=== PATIENT | male | born 1980 | race Caucasian/White ===

== ENCOUNTER 2022-06-24 16:02 | Inpatient (IN) | payer OTHER, SELFPAY ==
[2022-06-24] VITALS (7 sets, daily range): BP systolic 108–130; BP diastolic 61–72; PULSE 80–98; RESP 16; TEMP 36.4–38.1; O2SAT 94–99; BMI 27.9
--- NOTE | ~2022-06-24 | US_ITS ---
EXAMINATION: ULTRASOUND EXTREMITY NONVASCULAR, LEFT CLINICAL INFORMATION: Distal medial calf redness. COMPARISON: None TECHNIQUE: Targeted sonographic evaluation of the left distal medial calf FINDINGS: In the region of concern there is mild superficial edema with hyperemia. There is no fluid collection. No mass. US/US extremity nonvascular hagan IMPRESSION: Mild superficial edema in the region of concern. No fluid collection.
--- NOTE | ~2022-06-24 | CT_ITS ---
EXAMINATION: CT cervical spine wo IV con, CT head/brain wo IV con INDICATION INFORMATION: Status post fall downstairs, IVDA COMPARISON: None TECHNIQUE: Separate noncontrast CT examinations of the head and cervical spine were performed. Coronal and sagittal images were created for each examination at the technologist workstation. This CT examination was performed using dose optimization techniques as appropriate, variously including the following: *Automated exposure control *Adjustment of mA and/or kV according to patient size (this includes techniques or standardized protocols for targeted exams where dose is matched to indication/reason for exam; i.e. extremities or head) *Use of iterative reconstruction technique DLP: 995.61 mGy-cm mGy-cm FINDINGS: Head: The ventricles and sulci are normal in size and configuration without significant volume loss or hydrocephalus. There is no abnormal attenuation within the brain parenchyma. No territorial loss of syed-white differentiation. No acute intracranial hemorrhage or extra-axial fluid collection. No mass lesion, significant mass effect, or herniation pattern. The orbits are grossly normal. Paranasal sinuses and mastoid air cells are well aerated. Osseous structures are intact. Bilateral palatine tonsilloliths. Cervical spine: Motion degraded examination. No prevertebral soft tissue swelling. The craniocervical junction is intact. Sagittal alignment is preserved. There is no significant spondylolisthesis. Vertebral body heights are normal without acute compression fracture or traumatic posterior element subluxation. No suspicious osseous lesion. The intervertebral disc space heights are preserved. No significant spinal canal or neural foraminal stenosis at any level. Normal appearance of the paraspinal soft tissues. Normal appearance of the thyroid gland. Partially imaged median sternotomy. Lung findings discussed separately. Carious right posterior maxillary molar tooth. Bilateral palatine tonsilloliths. Subcutaneous emphysema within the bilateral neck soft tissues surrounding the bilateral sternocleidomastoid muscles with asymmetric enlargement of the left sternocleidomastoid muscle with surrounding soft tissue stranding and edema, including involvement of the deep myofascial plane at least on the left. Soft tissue stranding extends inferiorly abutting the carotid sheath structures, involving the left greater than right cervical triangles, and supraclavicular fossa. Increased size and number of views cervical chain lymph nodes, most pronounced in the bilateral level 2A donte stations, measuring 1.8 cm on the left and 1.7 cm on the right, probably reactive. No overlying soft tissue laceration is visualized. CT/CT cervical spine wo IV con IMPRESSION: 1. No acute intracranial hemorrhage or extra-axial fluid collection. 2. No acute fracture or traumatic subluxation of the cervical spine. 3. Subcutaneous emphysema and soft tissue stranding within the bilateral neck soft tissues surrounding the sternocleidomastoid muscles may reflect a sequelae of recent injection given reported history of IV drug abuse, however cellulitis/myositis and necrotizing fasciitis should be excluded on clinical grounds. Increased size and number of mildly prominent bilateral cervical chain lymph nodes, likely reactive. No drainable fluid collection on this noncontrast examination.
--- NOTE | ~2022-06-24 | XR_ITS ---
EXAMINATION: XR KNEE, LEFT CLINICAL INFORMATION: Pain after fall COMPARISON: None TECHNIQUE: Four views of the left knee. FINDINGS: Bones and soft tissues are normal. No fracture or joint effusion. Alignment is anatomic. Joint spaces are well maintained. No abnormal soft tissue calcification. XR/XR knee LT 3V IMPRESSION: Normal left knee.
--- NOTE | ~2022-06-24 | CT_ITS ---
EXAMINATION: CT CHEST, ABDOMEN AND PELVIS WITH CONTRAST CLINICAL INFORMATION: Fall. On Coumadin. COMPARISON: None. TECHNIQUE: Multidetector volumetric CT imaging of the chest, abdomen and pelvis was obtained after the administration of 85 mL of intravenous Omnipaque 350 without immediate adverse reactions. Coronal and sagittal reformatted images are performed at CT scanner [This CT examination was performed using dose optimization techniques as appropriate, variously including the following: *Automated exposure control *Adjustment of mA and/or kV according to patient size (this includes techniques or standardized protocols for targeted exams where dose is matched to indication/reason for exam; i.e. extremities or head) *Use of iterative reconstruction technique] DLP: 1049 mGy-cm. FINDINGS: CT CHEST: Lungs: Normal aeration of lungs. No interstitial lung disease. Central bronchial airways are open. No suspicious lung nodule. Mediastinum: Status post median sternotomy for aortic valve repair. No mediastinal mass or significant lymphadenopathy. Thoracic aorta is unremarkable. Normal thyroid gland. Pleura: There is no pleural effusion. No pleural mass or thickening. Axilla: No lymphadenopathy. CT ABDOMEN AND PELVIS: Liver, Gallbladder and Biliary Tree: Mild low-attenuation of liver parenchyma due to fatty change. No focal liver lesion or intrahepatic bile duct dilatation. The right lobe of liver measures 17 cm superior inferior. The gallbladder is unremarkable with no evidence of radiopaque gallstones, gallbladder wall thickening, or obvious pericholecystic inflammatory changes. Pancreas: No acute change of the pancreas. No mass. No pancreatic duct dilatation. Spleen: Spleen mildly prominent size measuring 12.6 cm in length. There is no focal splenic lesion. Adrenal Glands: Adrenal glands are normal in size. No focal mass. Kidneys and Ureters: The kidneys are normal in size, shape, and attenuation. No hydronephrosis, hydroureter, or calculi seen. No perinephric stranding. Bladder: Unremarkable. Gastrointestinal Tract: The small and large bowel are unremarkable. The appendix is unremarkable. Mesentery: No focal inflammation. No free fluid. No free air. Abdominal Wall: No significant hernia is appreciated. Lymph Nodes: Normal. Vascular: Unremarkable. Pelvic Viscera: Unremarkable. Osseous Structures: Status post median sternotomy. No acute osseous abnormality. CT/CT abdomen pelvis w IV con IMPRESSION: 1. No acute abnormality of the chest, abdomen or pelvis. 2. Status post median sternotomy for aortic valve repair. 3. Mild diffuse fatty change of liver. 4. Mild splenomegaly.
--- NOTE | ~2022-06-24 | CT_ITS ---
EXAMINATION: CT SOFT TISSUE NECK WITH CONTRAST CLINICAL INFORMATION: Follow-up neck soft tissue gas COMPARISON: CT cervical spine of 06/24/2022 TECHNIQUE: Following the administration of 100 mL of Omnipaque 300 intravenous contrast, helical imaging was performed in the axial plane with generation of coronal and sagittal reformatted images. This CT examination was performed using dose optimization techniques as appropriate, variously including the following: *Automated exposure control. *Adjustment of mA and/or kV according to patient size (this includes techniques or standardized protocols for targeted exams where dose is matched to indication/reason for exam; i.e. extremities or head). *Use of iterative reconstruction technique. DLP: 492 mGy-cm. FINDINGS: Since prior examination from 06/24/2022, subcutaneous emphysema and soft tissue stranding/edema within the bilateral neck soft tissues along the course of the sternocleidomastoid muscles has nearly resolved with trace residual soft tissue stranding and few scattered foci of air. Asymmetric enlargement of the left sternocleidomastoid muscle has resolved. No overlying skin laceration. No drainable fluid collection. Redemonstrated symmetric prominent bilateral IIa lymph nodes and asymmetric though nonpathologic size criteria left level II-IV lymph nodes, some of which are hyperenhancing, probably reactive. Mildly prominent hyperenhancing left periparotid lymph node again measures 1.0 cm in long axis. 0.5 cm subcutaneous lesion in the left facial soft tissues abutting the dermis, likely a sebaceous or epidermoid cyst. The fat planes of the skull base and soft tissues of the nasopharynx are unremarkable. The paranasal sinuses and mastoid air cells are well aerated. The temporomandibular joints are normal. Symmetric enlargement of the palatine tonsils with bilateral palatine tonsilloliths. Scattered dental caries. The hypopharynx and larynx are unremarkable. No aerodigestive tract mass. The thyroid gland is normal. Apparent mild centrilobular emphysema. Enhancement of the vascular structures of the neck. The osseous structures are intact without suspicious focal lesion. The imaged portions of the brain parenchyma are unremarkable. Median sternotomy wires. CT/CT soft tissue neck w IV con IMPRESSION: Near-complete resolution of subcutaneous emphysema and soft tissue stranding/edema within the bilateral neck soft tissues along the course of the sternocleidomastoid muscles with trace residual scattered foci of air and infiltration. Findings may have been injection-related or reflective of cellulitic/myositic changes on prior examination; correlate clinically. No drainable fluid collection. Prominent left greater than right cervical chain lymph nodes, probably reactive.
--- NOTE | 2022-06-24 16:50 | PC.NURSE ---
security at bedside for a recovery rn, belongings secured in decon room
--- NOTE | 2022-06-24 17:22 | ED_ITS ---
HPI - General Adult General Chief complaint: Overdose Stated complaint: OD Time Seen by Provider: 06/24/22 16:15 Source: patient and EMS Mode of arrival: EMS Limitations: no limitations History of Present Illness HPI narrative: Patient comes to the emergency room by EMS. According to EMS, patient was found unresponsive by a bystander, given 8 mg of intranasal Narcan by police, ventilated for 30 seconds. Patient states that he has been snorting cocaine. Patient denies IV drug use. Patient has history of endocarditis with valve replacement and is on Coumadin. Patient states that since 2017 since his surg olga, he has not use IV drugs. Patient states that he relapsed a few days ago. Patient states that he does not remember what happened, he thinks he fell down a flight of stairs. Patient complaining of right-sided rib pain, left hip pain and cellulitis in his left distal lower extremity Related Data Home Medications Medication Instructions Recorded Confirmed alprazolam 1 mg tablet 1 mg PO BID PRN 04/28/21 aripiprazole 10 mg tablet 10 mg PO DAILY 04/28/21 aripiprazole 15 mg tablet 15 mg PO DAILY 04/28/21 aripiprazole 5 mg tablet 5 mg PO DAILY 04/28/21 dextroamphetamine-amphetamine 20 1 tab PO BID 04/28/21 mg tablet doxepin 100 mg capsule 100 mg PO BEDTIME 04/28/21 lamotrigine 200 mg tablet 200 mg PO BID 04/28/21 metoprolol succinate 50 mg 50 mg PO DAILY 04/28/21 tablet,extended release 24 hr olanzapine 10 mg tablet 10 mg PO BEDTIME 04/28/21 pantoprazole 40 mg tablet,delayed 40 mg PO BID 04/28/21 release warfarin 10 mg tablet 0 mg PO 04/28/21 zolmitriptan 5 mg tablet 0 mg PO 04/28/21 Allergies Allergy/AdvReac Type Severity Reaction Status Date / Time morphine [MORPHINE] Allergy Unknown ITCHY Verified 04/28/21 14:08 shellfish derived Allergy Unknown SHORTNESS Verified 04/28/21 14:08 [SHELLFISH DERIVED] OF BREATH Sulfa (Sulfonamide Allergy Unknown UNK Verified 04/28/21 14:08 Antibiotics) [SULFA (SULFONAMIDE ANTIBIOTICS)] Review of Systems Review of Systems: Constitutional : No Weight loss, No Fever, No Chills, No Night Sweats, No Fatigue, No Malaise ENT/Mouth : No Hearing loss, No Ear Pain, No Nasal Congestion, No Sinus Pain, No Hoarseness, No sore throat, No Rhinorrhea, No Swallowing Difficulty Eyes: No Eye Pain, No Swelling, No Redness, No Foreign Body, No Discharge, No Vision Changes Cardiovascular : No Chest Pain, No SOB, No Dyspnea on Exertion, No Orthopnea, No Edema, No Palpitations Respiratory : No Cough, No Sputum, No Wheezing, No Smoke Exposure, No Dyspnea Gastrointestinal : No Nausea, No Vomiting, No Diarrhea, No Constipation, No abdominal Pain, No Hematochezia, No Melena Genitourinary : no irregular bleeding, No Dysuria, No Urinary Frequency, No Hematuria, No Urinary Incontinence, No Urgency, No Flank Pain, No Urinary Flow Changes, No Hesitancy Musculoskeletal : Complaining of left hip pain, complaining of right rib pain Skin : Complaining of cellulitis in his left lower extremity Neuro : No Weakness, No Numbness, No Paresthesias, No Loss of Consciousness, No Dizziness, No Headache Psych : No Anxiety/Panic, No Depression, No SI/HI/AH/VH, admits to recent relapse, using crack cocaine Heme/Lymph: No Bruising, No Bleeding,No Lymphadenopathy Endocrine : No Polyuria, No Polydipsia, No Temperature Intolerance PMFSH Past Medical History Medical History (Updated 06/25/22 @ 01:17 by Lindsey Lidnsey MD) Anticoagulated on Coumadin Substance abuse Surgical History (Updated 06/24/22 @ 17:28 by Lindsey Lindsey MD) Heart valve replaced Social History Social History Patient Tobacco Use Status: Current everyday Tobacco user Smoked in Last 30 Days: Yes Use of substances other than those prescribed or required for medical reasons: Yes Substance Use Type: Heroin Advance Directives: No Advance Directives Information Provided: No Physical Exam ED Vital Signs: Vital Signs - 24 hr 06/24/22 16:22 06/24/22 16:30 06/24/22 18:45 Temperature 98.7 F 100.6 F H Pulse Rate 98 Respiratory Rate 16 16 Blood Pressure 118/72 Pulse Oximetry 98 Oxygen Delivery Method Room Air 06/24/22 21:35 06/24/22 22:11 06/24/22 23:25 Temperature 97.6 F 100.2 F 98.9 F Pulse Rate 85 Respiratory Rate 16 Blood Pressure 108/61 Pulse Oximetry 94 Oxygen Delivery Method 06/25/22 00:04 Temperature 100.8 F H Pulse Rate 87 Respiratory Rate 20 Blood Pressure 140/75 H Pulse Oximetry 96 Oxygen Delivery Method Room Air BMI result Body Mass Index 27.9 Const Other: Appearance: Alert. Oriented X3. No acute distress. Eyes: Pupils equal, round and reactive to light. ENT: Pharynx normal. Neck: Normal inspection. Neck supple. No lymph nodes noted. No crepitus CVS: Normal heart rate and rhythm. Pulses normal. Normal S1 and S2 Respiratory: No respiratory distress. Breath sounds normal. No Wheezing. No rales Abdomen: Soft and nontender. No rigidity. No distention. Musculoskeletal: Pain to palpation on the ribs on the right side, pain to palpation over the left hip, able to flex and extend the hip. There is no swelling to the left knee, no effusions noted. No erythema Skin: There is a patch 5 cm x 5 cm of erythema in the left lower extremity, no calf tenderness bilaterally. Patient has multiple abrasions and excoriations in upper arms. Seems that he has been picking his skin, no needle track bryan Extremities: No lower extremity edema. No Lacerations. See skin above Neuro: Oriented X 3. No motor deficit. No sensory deficit. Moving all extremities. No slurred speech. CN 2 through 12 grossly intact Psych: calm, cooperative, normal affect Course Course Course Narrative: -all of patient's labs and imaging pending. - Medications Administered Discontinued Medications Generic Name Dose Route Start Last Admin Trade Name Freq PRN Reason Stop Dose Admin Acetaminophen 975 mg 06/24/22 17:16 06/24/22 18:01 Acetaminophen 325 Mg Tablet PO 06/24/22 17:17 975 mg ONCE ONE Administration Sodium Chloride 1,000 mls @ 999 mls/hr 06/24/22 17:16 06/24/22 19:07 Ns IVCONT 06/24/22 18:16 999 mls/hr .Q1H1M ONE Administration Sodium Chloride 3,000 mls @ 999 mls/hr 06/24/22 20:38 06/24/22 21:22 Ns IVCONT 06/24/22 23:38 999 mls/hr .Q3H1M ONE Administration Piperacillin Sod/Tazobactam 50 mls @ 100 mls/hr 06/24/22 20:38 06/24/22 21:21 Sod 3.375 gm/ Sodium Chloride IV 06/24/22 21:07 100 mls/hr ONCE ONE Administration Vancomycin HCl 2,000 mg in 520 mls @ 260 mls/hr 06/24/22 20:38 06/24/22 21:55 Vancomycin/Ns IV 06/24/22 22:37 260 mls/hr ONCE ONE Administration Iohexol 100 ml 06/24/22 19:49 06/24/22 19:50 Iohexol 350 Mg/Ml 100 Ml Infus..Btl IV 06/24/22 19:50 85 ml ONCE ONE Administration Medical Decision Making Medical Decision Making MDM Narrative: -patient's white blood cell count is 20, lactic acid within normal limits. 5 cm x 5 cm patch of erythema in the left lower extremity. Elevated white blood cell count likely secondary to reactive leukocytosis. -patient's INR is 2.1, therapeutic for Coumadin -T bilirubin is elevated, rest of LFTs at baseline. Patient has no abdominal pain. -CT scan of the neck shows subcutaneous emphysema and soft tissue stranding. Externally, patient has no erythema, no pain to palpation. This can be explained by multiple attempts of IV insertion on the neck to administer IV fl uids. IV insertion was attempted prior to doing the CT scan. Patient has no crepitus on physical exam, cellulitis, myositis and necrotizing fascitis is not suspected. -when patient arrived, patient received prophylactic antibiotics, Zosyn and vancomycin. -the only source of infection at this time is the cellulitis in patient's lower extremity and the excoriations in his arms. -patient is able to flex and extend the knee, there is no erythema, no joint effusion, nothing that would indicate a septic joint -patient to be discharge with oral antibiotics. a SUDE evaluation was made. The college football coach was concerned the patient made some vague suicidal statements. We requested a full care consult -care consult pending -patient keeps spiking fevers, last temperature 100.8 degrees. There is no source of infection other than possible cellulitis. I discussed the patient with Dr. Zhao. Patient has already received IV fluids, IV antibiotics. -we will reassess the patient about an hour, repeat labs. It is possible that the white blood cell count is reactive leukocytosis including the fever. However, if the repeated labs do not improve and the patient keeps spiking fever, the patient is likely to be admitted. -sign-out given to Dr. Servin Differential Diagnosis Differential Diagnoses: The differential diagnosis associated with the presentation includes (Overdose, fall, rib fractures) Lab Data MDM Lab Attestation statement: I reviewed the patient's lab results. 06/24/22 18:42 06/24/22 18:42 Labs: Lab Results 06/24/22 06/24/22 06/24/22 Range/Units 18:42 18:42 18:42 WBC 20.0 H (4.8-10.8) X10*3/uL RBC 4.77 (4.60-5.80) X10*6/uL Hgb 14.5 (14.0-18.0) g/dl Hct 40.6 L (42.0-52.0) % MCV 85.1 (80.0-98.0) fL MCH 30.4 (27.0-33.0) pg MCHC 35.7 (31.0-36.0) g/dl RDW 13.2 (11.0-16.0) % Plt Count 198 (160-400) X10*3/uL MPV 11.8 (9.4-12.4) fL Immature Gran % (Auto) 0.5 H (0.0-0.4) % Neut % (Auto) 89.0 H (45-73) % Lymph % (Auto) 3.3 L (20-40) % [place] % (Auto) 6.7 (2-11) % Eos % (Auto) 0.1 (0-4) % Baso % (Auto) 0.4 (0-2) % Lymph # (Auto) 0.7 L (1.2-4.9) X10*3/uL [place] # (Auto) 1.3 H (0.1-1.2) X10*3/uL Eos # (Auto) 0.0 (0.0-0.4) X10*3/uL Baso # (Auto) 0.1 (0.0-0.2) X10*3/uL Abs Immat Gran (auto) 0.09 H (0.00-0.03) X10*3/uL Absolute Neuts (auto) 17.8 H (2.0-8.3) x10*3/uL Absolute Nucleated RBC 0.000 (0.0-0.012) X10*3/uL Nucleated RBC % (auto) 0.0 (0.0-0.2) /100WBC PT (10.0-13.1) SEC INR (0.9-1.1) Sodium 139 (135-145) mmol/L Potassium 3.9 (3.3-5.1) mmol/L Chloride 105 (96-108) mmol/L Carbon Dioxide 25 (22-29) mmol/L Anion Gap 13 (12-20) BUN 12 (9-16) mg/dL Creatinine 0.77 (0.5-1.4) mg/dL Estim Creat Clear Calc 141.3 Estimated GFR > 60 Random Glucose 113 (60-115) mg/dL Lactic Acid (0.5-2.0) mmol/L Calcium 9.3 (8.4-10.2) mg/dL Magnesium 1.7 (1.6-2.6) mg/dL Total Bilirubin 1.5 H (0.0-1.0) mg/dL Direct Bilirubin 0.5 (0.0-0.5) mg/dL AST 45 H (5-37) U/L ALT 65 H (0-40) U/L Alkaline Phosphatase 74 (39-117) U/L Troponin I High Sens 5.6 (<3.5-35.0) ng/L Total Protein 6.5 (6.5-8.0) g/dL Albumin 4.0 (3.5-5.0) g/dL Urine Color Urine Appearance Urine pH (5.0-9.0) Ur Specific [place] (1.005-1.025) Urine Protein (Neg-Trace) mg/dL Urine Glucose (UA) (Negative) mg/dL Urine Ketones (Negative) mg/dL Urine Blood (Negative) Urine Nitrite (Negative) Ur Leukocyte Esterase (Negative) Urine Opiates Screen (Not Detect) Urine Fentanyl Screen (Not Detect) Ur Barbiturates Screen (Not Detect) Ur Phencyclidine Scrn (Not Detect) Ur Amphetamines Screen (Not Detect) U Benzodiazepines Scrn (Not Detect) Urine Cocaine Screen (Not Detect) U Marijuana (THC) Screen (Not Detect) Ethyl Alcohol mg/dL COVID-19 (ANGE) (Negative) COVID-19 Clin Com 06/24/22 06/24/22 06/24/22 Range/Units 18:42 18:42 18:42 WBC (4.8-10.8) X10*3/uL RBC (4.60-5.80) X10*6/uL Hgb (14.0-18.0) g/dl Hct (42.0-52.0) % MCV (80.0-98.0) fL MCH (27.0-33.0) pg MCHC (31.0-36.0) g/dl RDW (11.0-16.0) % Plt Count (160-400) X10*3/uL MPV (9.4-12.4) fL Immature Gran % (Auto) (0.0-0.4) % Neut % (Auto) (45-73) % Lymph % (Auto) (20-40) % [place] % (Auto) (2-11) % Eos % (Auto) (0-4) % Baso % (Auto) (0-2) % Lymph # (Auto) (1.2-4.9) X10*3/uL [place] # (Auto) (0.1-1.2) X10*3/uL Eos # (Auto) (0.0-0.4) X10*3/uL Baso # (Auto) (0.0-0.2) X10*3/uL Abs Immat Gran (auto) (0.00-0.03) X10*3/uL Absolute Neuts (auto) (2.0-8.3) x10*3/uL Absolute Nucleated RBC (0.0-0.012) X10*3/uL Nucleated RBC % (auto) (0.0-0.2) /100WBC PT 25.0 H (10.0-13.1) SEC INR 2.1 H (0.9-1.1) Sodium (135-145) mmol/L Potassium (3.3-5.1) mmol/L Chloride (96-108) mmol/L Carbon Dioxide (22-29) mmol/L Anion Gap (12-20) BUN (9-16) mg/dL Creatinine (0.5-1.4) mg/dL Estim Creat Clear Calc Estimated GFR Random Glucose (60-115) mg/dL Lactic Acid 0.7 (0.5-2.0) mmol/L Calcium (8.4-10.2) mg/dL Magnesium (1.6-2.6) mg/dL Total Bilirubin (0.0-1.0) mg/dL Direct Bilirubin (0.0-0.5) mg/dL AST (5-37) U/L ALT (0-40) U/L Alkaline Phosphatase (39-117) U/L Troponin I High Sens (<3.5-35.0) ng/L Total Protein (6.5-8.0) g/dL Albumin (3.5-5.0) g/dL Urine Color Urine Appearance Urine pH (5.0-9.0) Ur Specific [place] (1.005-1.025) Urine Protein (Neg-Trace) mg/dL Urine Glucose (UA) (Negative) mg/dL Urine Ketones (Negative) mg/dL Urine Blood (Negative) Urine Nitrite (Negative) Ur Leukocyte Esterase (Negative) Urine Opiates Screen (Not Detect) Urine Fentanyl Screen (Not Detect) Ur Barbiturates Screen (Not Detect) Ur Phencyclidine Scrn (Not Detect) Ur Amphetamines Screen (Not Detect) U Benzodiazepines Scrn (Not Detect) Urine Cocaine Screen (Not Detect) U Marijuana (THC) Screen (Not Detect) Ethyl Alcohol mg/dL COVID-19 (ANGE) Negative (Negative) COVID-19 Clin Com See Note 06/24/22 06/24/22 06/24/22 Range/Units 18:42 18:42 18:42 WBC (4.8-10.8) X10*3/uL RBC (4.60-5.80) X10*6/uL Hgb (14.0-18.0) g/dl Hct (42.0-52.0) % MCV (80.0-98.0) fL MCH (27.0-33.0) pg MCHC (31.0-36.0) g/dl RDW (11.0-16.0) % Plt Count (160-400) X10*3/uL MPV (9.4-12.4) fL Immature Gran % (Auto) (0.0-0.4) % Neut % (Auto) (45-73) % Lymph % (Auto) (20-40) % [place] % (Auto) (2-11) % Eos % (Auto) (0-4) % Baso % (Auto) (0-2) % Lymph # (Auto) (1.2-4.9) X10*3/uL [place] # (Auto) (0.1-1.2) X10*3/uL Eos # (Auto) (0.0-0.4) X10*3/uL Baso # (Auto) (0.0-0.2) X10*3/uL Abs Immat Gran (auto) (0.00-0.03) X10*3/uL Absolute Neuts (auto) (2.0-8.3) x10*3/uL Absolute Nucleated RBC (0.0-0.012) X10*3/uL Nucleated RBC % (auto) (0.0-0.2) /100WBC PT (10.0-13.1) SEC INR (0.9-1.1) Sodium (135-145) mmol/L Potassium (3.3-5.1) mmol/L Chloride (96-108) mmol/L Carbon Dioxide (22-29) mmol/L Anion Gap (12-20) BUN (9-16) mg/dL Creatinine (0.5-1.4) mg/dL Estim Creat Clear Calc Estimated GFR Random Glucose (60-115) mg/dL Lactic Acid (0.5-2.0) mmol/L Calcium (8.4-10.2) mg/dL Magnesium (1.6-2.6) mg/dL Total Bilirubin (0.0-1.0) mg/dL Direct Bilirubin (0.0-0.5) mg/dL AST (5-37) U/L ALT (0-40) U/L Alkaline Phosphatase (39-117) U/L Troponin I High Sens (<3.5-35.0) ng/L Total Protein (6.5-8.0) g/dL Albumin (3.5-5.0) g/dL Urine Color Yellow Urine Appearance Clear Urine pH 7.5 (5.0-9.0) Ur Specific [place] <= 1.005 (1.005-1.025) Urine Protein Negative (Neg-Trace) mg/dL Urine Glucose (UA) Negative (Negative) mg/dL Urine Ketones Trace (Negative) mg/dL Urine Blood Negative (Negative) Urine Nitrite Negative (Negative) Ur Leukocyte Esterase Negative (Negative) Urine Opiates Screen POSITIVE H (Not Detect) Urine Fentanyl Screen POSITIVE H (Not Detect) Ur Barbiturates Screen Not Detected (Not Detect) Ur Phencyclidine Scrn Not Detected (Not Detect) Ur Amphetamines Screen Not Detected (Not Detect) U Benzodiazepines Scrn Not Detected (Not Detect) Urine Cocaine Screen POSITIVE H (Not Detect) U Marijuana (THC) Screen Not Detected (Not Detect) Ethyl Alcohol < 10 mg/dL COVID-19 (ANGE) (Negative) COVID-19 Clin Com Radiology Impression Discussion of test interpretation with radiology: I have reviewed the radiologist's reading. Radiologist Impression: CT scan of chest abdomen and pelvis FINDINGS: CT CHEST: Lungs: Normal aeration of lungs. No interstitial lung disease. Central bronchial airways are open. No suspicious lung nodule.? Mediastinum: Status post median sternotomy for aortic valve repair. No mediastinal mass or significant lymphadenopathy. Thoracic aorta is unremarkable. Normal thyroid gland.? Pleura: There is no pleural effusion. No pleural mass or thickening.? Axilla: No lymphadenopathy.? CT ABDOMEN AND PELVIS: Liver, Gallbladder and Biliary Tree: Mild low-attenuation of liver parenchyma due to fatty change. No focal liver lesion or intrahepatic bile duct dilatation. The right lobe of liver measures 17 cm superior inferior. ?The gallbladder is unremarkable with no evidence of radiopaque gallstones, gallbladder wall thickening, or obvious pericholecystic inflammatory changes.? Pancreas: No acute change of the pancreas. No mass. No pancreatic duct dilatation.? Spleen: Spleen mildly prominent size measuring 12.6 cm in length. There is no focal splenic lesion.? Adrenal Glands: Adrenal glands are normal in size. No focal mass.? Kidneys and Ureters: The kidneys are normal in size, shape, and attenuation. No hydronephrosis, hydroureter, or calculi seen. No perinephric stranding. ? Bladder: Unremarkable.? Gastrointestinal Tract: The small and large bowel are unremarkable. The appendix is unremarkable.? Mesentery: No focal inflammation. No free fluid. No free air. Abdominal Wall: No significant hernia is appreciated.? Lymph Nodes: Normal. Vascular: Unremarkable. Pelvic Viscera: Unremarkable.? Osseous Structures: Status post median sternotomy. No acute osseous abnormality.? CT/CT chest w IV con IMPRESSION: 1.? No acute abnormality of the chest, abdomen or pelvis. 2.? Status post median sternotomy for aortic valve repair. 3.? Mild diffuse fatty change of liver. 4.? Mild splenomegaly. CT scan of head and neck: IMPRESSION: 1.? No acute intracranial hemorrhage or extra-axial fluid collection. 2.? No acute fracture or traumatic subluxation of the cervical spine. 3.? Subcutaneous emphysema and soft tissue stranding within the bilateral neck soft tissues surrounding the sternocleidomastoid muscles may reflect a sequelae of recent injection given reported history of IV drug abuse, however cellulitis/myositis and necrotizing fasciitis should be excluded on clinical grounds. Increased size and number of mildly prominent bilateral cervical chain lymph nodes, likely reactive. No drainable fluid collection on this noncontrast examination. Left knee x-ray: Bones and soft tissues are normal. No fracture or joint effusion. Alignment is anatomic. Joint spaces are well maintained. No abnormal soft tissue calcification.? XR/XR knee LT 3V IMPRESSION: Normal left knee. Discharge Plan Discharge Clinical Impression: Drug overdose, Fall, Cellulitis, Depression, Fever of unknown origin Patient Disposition: Still a Patient Prescriptions: No Action dextroamphetamine-amphetamine 20 mg tablet 1 tab PO BID alprazolam 1 mg tablet 1 mg PO BID PRN metoprolol succinate 50 mg tablet extended release 24 hr 50 mg PO DAILY aripiprazole 15 mg tablet 15 mg PO DAILY doxepin 100 mg capsule 100 mg PO BEDTIME aripiprazole 5 mg tablet 5 mg PO DAILY olanzapine 10 mg tablet 10 mg PO BEDTIME zolmitriptan 5 mg tablet 0 mg PO lamotrigine 200 mg tablet 200 mg PO BID warfarin 10 mg tablet 0 mg PO aripiprazole 10 mg tablet 10 mg PO DAILY pantoprazole 40 mg tablet,delayed release (DR/EC) 40 mg PO BID Interventions: [place]-Suicide Risk Severity Scale Last Done: 06/24/22 16:31
[2022-06-24] MEDS: Acetaminophen 325 MG TABLET 975 MG PO (18:01)
--- NOTE | 2022-06-24 18:45 | PC.NURSE ---
attempted to get and iv very unsuccessful, [place] also attempted with the us but still unsuccessful
[2022-06-24 18:47] LABS: MANUAL DIFF FLAG NO
[2022-06-24 18:48] LABS: Basophils Absolute Auto 0.1 X10*3/uL (0.0-0.2); Basophils Percent Auto 0.4 % (0-2); Eosinophils Percent Auto 0.1 % (0-4); Hematocrit 40.6 % (42.0-52.0); Hemoglobin 14.5 g/dl (14.0-18.0); Imm Gran Abs Auto 0.09 X10*3/uL (0.00-0.03); Imm Gran Pct Auto 0.5 % (0.0-0.4); Lymphocytes Absolute Auto 0.7 X10*3/uL (1.2-4.9); Lymphocytes Percent Auto 3.3 % (20-40); Mean Corpuscular HGB Conc 35.7 g/dl (31.0-36.0); Mean Corpuscular Hemoglobin 30.4 pg (27.0-33.0); Mean Corpuscular Volume 85.1 fL (80.0-98.0); Mean Platelet Volume 11.8 fL (9.4-12.4); Monocytes Absolute Auto 1.3 X10*3/uL (0.1-1.2); Monocytes Percent Auto 6.7 % (2-11); Neutrophils Absolute Auto 17.8 x10*3/uL (2.0-8.3); Platelet Count 198 X10*3/uL (160-400); Red Blood Count 4.77 X10*6/uL (4.60-5.80); Red Cell Distribution Width 13.2 % (11.0-16.0)
[2022-06-24 19:00] LABS: INTERNATIONAL NORM RATIO 2.1 (0.9-1.1)
[2022-06-24 19:02] LABS: Lactic Acid 0.7 mmol/L (0.5-2.0)
[2022-06-24 19:05] LABS: Amphetamine Screen Urine Not Detected (Not Detect); Barbiturates, Urine Not Detected (Not Detect); Benzodiazepines Screen Urine Not Detected (Not Detect); Cannabinoid Screen Urine Not Detected (Not Detect); Cocaine Screen Urine POSITIVE (Not Detect); Fentanyl, urine POSITIVE (Not Detect); Opiate Screen Urine POSITIVE (Not Detect); Phencyclidine Screen Urine Not Detected (Not Detect)
[2022-06-24 19:06] LABS: Alanine Aminotransferase 65 U/L (0-40); Alkaline Phosphatase 74 U/L (39-117); Anion Gap 13 (12-20); Aspartate Amino Transferase 45 U/L (5-37); Bilirubin Direct 0.5 mg/dL (0.0-0.5); Bilirubin Total 1.5 mg/dL (0.0-1.0); Blood Urea Nitrogen 12 mg/dL (9-16); Calcium 9.3 mg/dL (8.4-10.2); Carbon Dioxide 25 mmol/L (22-29); Chloride 105 mmol/L (96-108); Creatinine Clr Calc Pharmacy 141.3; Estimated Glomerular Filt Rate > 60; Ethanol < 10 mg/dL; Glucose Random 113 mg/dL (60-115); Magnesium 1.7 mg/dL (1.6-2.6); Potassium 3.9 mmol/L (3.3-5.1); Sodium 139 mmol/L (135-145); Total Protein 6.5 g/dL (6.5-8.0)
[2022-06-24] MEDS: 0.9 % Sodium Chloride 1,000 ML 999 ML IVCONT (19:07)
--- NOTE | 2022-06-24 19:09 | PC.NURSE ---
this rn assumed care of pt @ 1900. dr estrella able to place ej fluids started at this time. attempting to place additional line using US
[2022-06-24 19:13] LABS: Troponin-I High Sensitivity 5.6 ng/L (<3.5-35.0)
[2022-06-24 19:24] LABS: COVID-19 Test Negative (Negative); IDNOW Serial# 16C4AD1C
[2022-06-24] MEDS: iohexoL 350 MG/ML 100 ML INFUS..BTL IV (19:50)
--- NOTE | 2022-06-24 20:49 | MHC.RECOVSUP ---
Reason for consult: OD o Current location: 22H o Identified substance use concern: OPIOID - Overdose - Withdrawal <del>-</del> <del>Seeking</del> <del>ATS</del> <del>(detox)</del> <del>-</del> <del>Support</del> ? Intervention: <del>o</del> <del>ATS</del> <del>bed</del> <del>search</del> <del>started/completed/in</del> <del>process</del> <del>o</del> <del>MAT</del> <del>started</del> <del>or</del> <del>to</del> <del>be</del> <del>started</del> <del>o</del> <del>Community</del> <del>resources</del> <del>provided</del> <del>o</del> <del>Harm</del> <del>reduction</del> <del>discussion</del> ? Plan: <del>o</del> <del>Referral</del> <del>to</del> <del>[facility]</del> <del>o</del> <del>Bed</del> <del>search</del> <del>in</del> <del>progress</del> <del>to</del> <del>o</del> <del>Follow</del> <del>up</del> <del>tomorrow</del> o Patient awaiting crisis evaluation <del>o</del> <del>Patient</del> <del>to</del> <del>follow</del> <del>up</del> <del>with</del> <del>HF</del> <del>after</del> <del>discharge</del> ? Additional information:i was able to speak with pt and he stated that he OD in [place] and he is from [place]. he had two years in recovery and he stated that he recently relapsed. pt is not on MAT and he was not interested in going into treatment or any recovery resources. One of the care team guide spoke with pt and he stated that the pt made some comments that he felt were concerning and will be requesting a consult from Dr. Lindsey
--- NOTE | 2022-06-24 20:50 | PC.NURSE ---
orders placed for fluids by dr brady. this rn reached out to dr brady regarding if this would be sepsis protocol. per dr brady not sepsis protocol. no sepsis protocol called. pt medicated according to juan
--- NOTE | 2022-06-24 20:51 | HO.SUDE ---
CARE team met with PT for requested SUDE. PT reported that his life is destroyed. He reported losing everything recently which led to his recent relapse. He reported two years sober and relapsing on friday. He refused to speak about any treatment plan. He reported increase hopelessness/helplessness. He reported that his life is over and doesn't care if it ended. He was not clear if the OD was intentional. CARE team consulted with robert for a request of ordering crsisis assessment. She reported pt will be transferred/admitted.
[2022-06-24] MEDS: Piperacillin Sodium/Tazobactam 3.375 GM in 0.9 % Sodium Chloride 50 ML IV (21:21)
[2022-06-24] MEDS: 0.9 % Sodium Chloride 3,000 ML 999 ML IVCONT (21:22)
[2022-06-24 23:08] LABS: Appearance Urine Clear; Color Urine Yellow; Glucose Urine UA Negative (Negative); Leukocyte Esterase Urine Negative (Negative); Nitrite Urine Negative (Negative); PH 7.5 (5.0-9.0); Specific Gravity - Urine <= 1.005 (1.005-1.025); Urine Blood Negative (Negative); Urine Ketones Trace mg/dL (Negative); Urine Protein Negative (Neg-Trace)
[2022-06-25] VITALS (9 sets, daily range): BP systolic 97–140; BP diastolic 51–75; PULSE 60–87; RESP 17–29; TEMP 36.8–39.6; O2SAT 94–100; BMI 29.0
--- NOTE | 2022-06-25 | ECG_ITS ---
Test Reason : overdose Blood Pressure : / mmHG Vent. Rate : 085 BPM Atrial Rate : 085 BPM P-R Int : 166 ms QRS Dur : 088 ms QT Int : 340 ms P-R-T Axes : 060 044 039 degrees QTc Int : 404 ms Normal sinus rhythm Nonspecific T wave abnormality Abnormal ECG No previous ECGs available Referred By: Josh Zhao Electronically Signed By:LALO GARCIA
--- NOTE | 2022-06-25 00:35 | PC.NURSE ---
late entry-dr brady made aware of pt temperature. verbal order for motrin 600mg
--- NOTE | 2022-06-25 00:37 | PC.NURSE ---
per dr brady verbal order for 650 tylenol for fever. verbal order with read back
--- NOTE | 2022-06-25 01:35 | PC.NURSE ---
this rn attempted to medicated pt. pt appeared more lethargic at this time. dr brady made aware. dr brady observed pt at this time. instructed this rn to continue to monitor Spo2 95% RA as well as holding po medication at this time
[2022-06-25] MEDS: Acetaminophen 325 MG TABLET 650 MG PO ×3 (01:40→12:55)
[2022-06-25 01:57] LABS: Basophils Absolute Auto 0.1 X10*3/uL (0.0-0.2); Basophils Percent Auto 0.4 % (0-2); Eosinophils Percent Auto 0.1 % (0-4); Hematocrit 40.8 % (42.0-52.0); Hemoglobin 14.1 g/dl (14.0-18.0); Imm Gran Abs Auto 0.06 X10*3/uL (0.00-0.03); Imm Gran Pct Auto 0.4 % (0.0-0.4); Lymphocytes Percent Auto 7.1 % (20-40); MANUAL DIFF FLAG NO; Mean Corpuscular HGB Conc 34.6 g/dl (31.0-36.0); Mean Corpuscular Hemoglobin 29.7 pg (27.0-33.0); Mean Corpuscular Volume 85.9 fL (80.0-98.0); Mean Platelet Volume 11.7 fL (9.4-12.4); Monocytes Absolute Auto 0.7 X10*3/uL (0.1-1.2); Monocytes Percent Auto 4.7 % (2-11); Neutrophils Absolute Auto 12.2 x10*3/uL (2.0-8.3); Neutrophils Percent Auto 87.3 % (45-73); Platelet Count 168 X10*3/uL (160-400); Red Blood Count 4.75 X10*6/uL (4.60-5.80); Red Cell Distribution Width 13.4 % (11.0-16.0)
[2022-06-25 02:08] LABS: Lactic Acid 1.1 mmol/L (0.5-2.0)
[2022-06-25 02:18] LABS: Anion Gap 10 (12-20); Blood Urea Nitrogen 9 mg/dL (9-16); Calcium 8.3 mg/dL (8.4-10.2); Carbon Dioxide 24 mmol/L (22-29); Chloride 109 mmol/L (96-108); Creatinine Clr Calc Pharmacy 134.4; Estimated Glomerular Filt Rate > 60; Glucose Random 122 mg/dL (60-115); Potassium 3.8 mmol/L (3.3-5.1); Sodium 139 mmol/L (135-145)
--- NOTE | 2022-06-25 02:50 | PM.IMHP ---
History of Present Illness Date of Service: 06/25/22 Chief Complaint: Fall/Overdose 41M with remote hx IVDA Hx Endocarditis s/p Mechanical valve replacement in 2013 on Coumadin (Goal INR 2.5-3.5), Polysubstance abuse; HTN, Anxiety, Depression, Bipolar; Tobacco dependence p/w Drug overdose, Fall and unresponsive. Pt reports that he has not used IV drugs since 2012. He is latetly snorting drugs. Today he snorted crack and heroin; siubesequently overdosed and fell of stairs; pt was aprneic and unresponsive; EMS was called by bystanders; EMS team; did CPR, BAgged and gave 8mg narcane; later pt became alert and was brought ot ER. pt reports his chest hurts on deep breathing from CPR; denies SOB/Palpitaitons/dizziness. Mentions he used to take lamictal- but stopped two weeks ago due to rash on Upper Extremity; which now resolved. Reports for past few days he has been noticing redness on left leg medial side; also itching and he is scratching; later he noticed red lesions on his RUE a couple and a couple spots on his back. Reports knee pain after fall with ROM. Denies Cough; Nausea/vomiting/diarrhea/abd pain. Denies urine symptoms. ER course: Per ER Physician- pt had Non focal exam; CT head, CT chest, CT abd showed no acute findings; INR 2.1; Noted WBC 20 but improving; HAd fever - presumed to be duie to cellulitis on leg and gave abx. CT c spine shows no Fracture but noted gas in NEck-> attributed to IV line attempt by ER physician. No local redness ; pt neck was supple. No crepitus. per ER physician - not concerned for infection in Neck. Admitted for further management. [facility] Medical History (Updated 06/25/22 @ 01:17 by Lindsey Lindsey MD) Anticoagulated on Coumadin Substance abuse Surgical History (Updated 06/24/22 @ 17:28 by Lindsey Lindsey MD) Heart valve replaced Social History Patient Tobacco Use Status: Current everyday Tobacco user Smoked in Last 30 Days: Yes Use of substances other than those prescribed or required for medical reasons: Yes Substance Use Type: Heroin Advance Directives: No Advance Directives Information Provided: No Meds Allergies Allergy/AdvReac Type Severity Reaction Status Date / Time morphine [MORPHINE] Allergy Unknown ITCHY Verified 04/28/21 14:08 shellfish derived Allergy Unknown SHORTNESS Verified 04/28/21 14:08 [SHELLFISH DERIVED] OF BREATH Sulfa (Sulfonamide Allergy Unknown UNK Verified 04/28/21 14:08 Antibiotics) [SULFA (SULFONAMIDE ANTIBIOTICS)] Home Medications Medication Instructions Recorded Confirmed Last Taken Type aripiprazole 5 mg tablet 5 mg PO DAILY 04/28/21 06/25/22 Unknown History dextroamphetamine-amphetamine 20 1 tab PO BID 04/28/21 06/25/22 Unknown History mg tablet doxepin 100 mg capsule 100 mg PO BEDTIME 04/28/21 06/25/22 Unknown History metoprolol succinate 50 mg 50 mg PO DAILY 04/28/21 06/25/22 Unknown History tablet,extended release 24 hr benztropine 1 mg tablet 1 tab PO BEDTIME 06/25/22 06/25/22 Unknown History oxcarbazepine 150 mg tablet 1 tab PO BID 06/25/22 06/25/22 Unknown History trazodone 150 mg tablet 1 tab PO BEDTIME 06/25/22 06/25/22 Unknown History warfarin 10 mg tablet 1 tab PO DAILY 06/25/22 06/25/22 Unknown History Physical Exam Vital Signs and Narrative: Vital Signs: Last Vital Signs Temp 103.2 F H 06/25/22 02:44 Pulse 87 06/25/22 02:44 Resp 20 06/25/22 02:44 BP 114/57 L 06/25/22 02:44 Pulse Ox 95 06/25/22 02:44 O2 Del Method 06/25/22 02:44 BMI result Body Mass Index 27.9 Appearance: Alert.? Oriented X3.? No acute distress.? Neck: Normal inspection.? Neck supple. No lymph nodes noted. No crepitus CVS: Normal heart rate and rhythm.? Pulses normal. Normal S1 and S2 Pulm:Clear Abdomen: Soft and nontender. No rigidity. No distention. Musculoskeletal:? Pain to palpation on the ribs on the right side, pain to palpation over the left hip, able to flex and extend the hip.? There is no swelling to the left knee, no effusions noted.? No erythema Skin:? There is a patch 5 cm x 5 cm of erythema in the left lower extremity, no calf tenderness bilaterally.? Patient has multiple abrasions and excoriations in upper arms.? picking his skin, no needle track bryan Extremities: No lower extremity edema. No Lacerations.? See skin above Neuro:Non focal Results Labs 06/25/22 01:52 06/25/22 01:52 Labs: Laboratory Results - last 24 hr 06/24/22 06/24/22 06/24/22 18:42 18:42 18:42 MCV 85.1 MCH 30.4 MCHC 35.7 RDW 13.2 Plt Count 198 MPV 11.8 Immature Gran % (Auto) 0.5 H Neut % (Auto) 89.0 H Lymph % (Auto) 3.3 L [place] % (Auto) 6.7 Eos % (Auto) 0.1 Baso % (Auto) 0.4 Lymph # (Auto) 0.7 L [place] # (Auto) 1.3 H Eos # (Auto) 0.0 Baso # (Auto) 0.1 Abs Immat Gran (auto) 0.09 H Absolute Neuts (auto) 17.8 H Absolute Nucleated RBC 0.000 Nucleated RBC % (auto) 0.0 PT INR Anion Gap 13 Estim Creat Clear Calc 141.3 Estimated GFR > 60 Random Glucose 113 Lactic Acid Calcium 9.3 Magnesium 1.7 Total Bilirubin 1.5 H Direct Bilirubin 0.5 AST 45 H ALT 65 H Alkaline Phosphatase 74 Troponin I High Sens 5.6 Total Protein 6.5 Albumin 4.0 Urine Color Urine Appearance Urine pH Ur Specific [place]ohman Urine Protein Urine Glucose (UA) Urine Ketones Urine Blood Urine Nitrite Ur Leukocyte Esterase Urine Opiates Screen Urine Fentanyl Screen Ur Barbiturates Screen Ur Phencyclidine Scrn Ur Amphetamines Screen U Benzodiazepines Scrn Urine Cocaine Screen U Marijuana (THC) Screen Ethyl Alcohol COVID-19 (ANGE) COVID-19 Clin Com 06/24/22 06/24/22 06/24/22 18:42 18:42 18:42 MCV MCH MCHC RDW Plt Count MPV Immature Gran % (Auto) Neut % (Auto) Lymph % (Auto) [place] % (Auto) Eos % (Auto) Baso % (Auto) Lymph # (Auto) [place] # (Auto) Eos # (Auto) Baso # (Auto) Abs Immat Gran (auto) Absolute Neuts (auto) Absolute Nucleated RBC Nucleated RBC % (auto) PT 25.0 H INR 2.1 H Anion Gap Estim Creat Clear Calc Estimated GFR Random Glucose Lactic Acid 0.7 Calcium Magnesium Total Bilirubin Direct Bilirubin AST ALT Alkaline Phosphatase Troponin I High Sens Total Protein Albumin Urine Color Urine Appearance Urine pH Ur Specific Lohman Urine Protein Urine Glucose (UA) Urine Ketones Urine Blood Urine Nitrite Ur Leukocyte Esterase Urine Opiates Screen Urine Fentanyl Screen Ur Barbiturates Screen Ur Phencyclidine Scrn Ur Amphetamines Screen U Benzodiazepines Scrn Urine Cocaine Screen U Marijuana (THC) Screen Ethyl Alcohol COVID-19 (ANGE) Negative COVID-19 Clin Com See Note 06/24/22 06/24/22 06/24/22 18:42 18:42 18:42 MCV MCH MCHC RDW Plt Count MPV Immature Gran % (Auto) Neut % (Auto) Lymph % (Auto) [place] % (Auto) Eos % (Auto) Baso % (Auto) Lymph # (Auto) [place] # (Auto) Eos # (Auto) Baso # (Auto) Abs Immat Gran (auto) Absolute Neuts (auto) Absolute Nucleated RBC Nucleated RBC % (auto) PT INR Anion Gap Estim Creat Clear Calc Estimated GFR Random Glucose Lactic Acid Calcium Magnesium Total Bilirubin Direct Bilirubin AST ALT Alkaline Phosphatase Troponin I High Sens Total Protein Albumin Urine Color Yellow Urine Appearance Clear Urine pH 7.5 Ur Specific Lohman <= 1.005 Urine Protein Negative Urine Glucose (UA) Negative Urine Ketones Trace Urine Blood Negative Urine Nitrite Negative Ur Leukocyte Esterase Negative Urine Opiates Screen POSITIVE H Urine Fentanyl Screen POSITIVE H Ur Barbiturates Screen Not Detected Ur Phencyclidine Scrn Not Detected Ur Amphetamines Screen Not Detected U Benzodiazepines Scrn Not Detected Urine Cocaine Screen POSITIVE H U Marijuana (THC) Screen Not Detected Ethyl Alcohol < 10 COVID-19 (ANGE) COVID-19 Clin Com 06/25/22 06/25/22 06/25/22 01:52 01:52 01:52 MCV 85.9 MCH 29.7 MCHC 34.6 RDW 13.4 Plt Count 168 MPV 11.7 Immature Gran % (Auto) 0.4 Neut % (Auto) 87.3 H Lymph % (Auto) 7.1 L [place] % (Auto) 4.7 Eos % (Auto) 0.1 Baso % (Auto) 0.4 Lymph # (Auto) 1.0 L [place] # (Auto) 0.7 Eos # (Auto) 0.0 Baso # (Auto) 0.1 Abs Immat Gran (auto) 0.06 H Absolute Neuts (auto) 12.2 H Absolute Nucleated RBC 0.000 Nucleated RBC % (auto) 0.0 PT INR Anion Gap 10 L Estim Creat Clear Calc 134.4 Estimated GFR > 60 Random Glucose 122 H Lactic Acid 1.1 Calcium 8.3 L D Magnesium Total Bilirubin Direct Bilirubin AST ALT Alkaline Phosphatase Troponin I High Sens Total Protein Albumin Urine Color Urine Appearance Urine pH Ur Specific [place]ohman Urine Protein Urine Glucose (UA) Urine Ketones Urine Blood Urine Nitrite Ur Leukocyte Esterase Urine Opiates Screen Urine Fentanyl Screen Ur Barbiturates Screen Ur Phencyclidine Scrn Ur Amphetamines Screen U Benzodiazepines Scrn Urine Cocaine Screen U Marijuana (THC) Screen Ethyl Alcohol COVID-19 (ANGE) COVID-19 Clin Com Imaging Radiologist's Impressions: Impressions Knee X-Ray 06/24/22 19:50 IMPRESSION: Normal left knee. Cervical Spine CT 06/24/22 20:06 IMPRESSION: 1. No acute intracranial hemorrhage or extra-axial fluid collection. 2. No acute fracture or traumatic subluxation of the cervical spine. 3. Subcutaneous emphysema and soft tissue stranding within the bilateral neck soft tissues surrounding the sternocleidomastoid muscles may reflect a sequelae of recent injection given reported history of IV drug abuse, however cellulitis/myositis and necrotizing fasciitis should be excluded on clinical grounds. Increased size and number of mildly prominent bilateral cervical chain lymph nodes, likely reactive. No drainable fluid collection on this noncontrast examination. Head CT 06/24/22 20:06 IMPRESSION: 1. No acute intracranial hemorrhage or extra-axial fluid collection. 2. No acute fracture or traumatic subluxation of the cervical spine. 3. Subcutaneous emphysema and soft tissue stranding within the bilateral neck soft tissues surrounding the sternocleidomastoid muscles may reflect a sequelae of recent injection given reported history of IV drug abuse, however cellulitis/myositis and necrotizing fasciitis should be excluded on clinical grounds. Increased size and number of mildly prominent bilateral cervical chain lymph nodes, likely reactive. No drainable fluid collection on this noncontrast examination. Abdomen/Pelvis CT 06/24/22 20:08 IMPRESSION: 1. No acute abnormality of the chest, abdomen or pelvis. 2. Status post median sternotomy for aortic valve repair. 3. Mild diffuse fatty change of liver. 4. Mild splenomegaly. Chest CT 06/24/22 20:09 IMPRESSION: 1. No acute abnormality of the chest, abdomen or pelvis. 2. Status post median sternotomy for aortic valve repair. 3. Mild diffuse fatty change of liver. 4. Mild splenomegaly. Assessment and Plan (1) Cellulitis: Status: Acute (2) Fall: Status: Acute (3) Drug overdose: Status: Acute Plan 41M with remote hx IVDA Hx Endocarditis s/p Mechanical valve replacement in 2013 on Coumadin (Goal INR 2.5-3.5), Polysubstance abuse; HTN, Anxiety, Depression, Bipolar; Tobacco dependence p/w Drug overdose, Fall and unresponsive. Sepsis likely due to Cellulitis on Left leg: pt was also Bagged when unresponsive- Suspected aspiration but pt denies SOB, Cough; saturating Well at 96% on RA. CT chest showed no acute lung pathology. UA negative. c/w IV vanc and Zosyn. ID consult. f/u Cultures Gas in Neck soft tissues: attributed tto IV line attempt. No local signs of infection. General surgery consulted by ER for inputs on CT findings. Update: 6:30Am Dr Fuentes from surgery suggested repeat CT neck- ordered. Will pass on to Day team to follow up results. Unresponsive episode: Secondary to Drug overdose. Responded to 8mg narcane at the seen. Initially required CPR and Bagging brefily. Currently Mental status back to normal. Answering appropriatly. Non Focal exam. Telemetry EKG pending Troponin 5.6---> Repeat pending Fall: Due to over dose. pt ambulating independently currently. but reports pain in Left knee. Imaging negative for fracture. PT/OT eventually. Pain control. Hx MEchanical Heart valve: INR subtherapeutic at 2.1 today. Will continue coumadin. f/u INR will also bridge with Lovenox. Tobacco dependence: Counselled on smoking cessation. Offered nicotine gums. Hx Anxiety/Depression/Bipolar: pt reports he has not been taking his psych meds for about a week. Recommneded psychiatry follow up. DVT ppx: pt on Coumadin Full code. Time Spent With Patient Time: Total time managing care of this patient today ____ minutes. Quality Stroke Does the patient have a stroke diagnosis?: No VTE Prior VTE?: No VTE Risk Level:: Medical - moderate - high VTE Device Contraindication: Treatment Not Indicated VTE Drug Contraindication: N/A - Med Ordered
--- NOTE | 2022-06-25 03:10 | PC.NURSE ---
this rn spoke with dr mcdaniel regarding tylenol administration. per md hold tylenol as it is too early. utilize ice packs at this time
--- NOTE | 2022-06-25 04:20 | PC.NURSE ---
ekg obtained this rn sent ekg to dr mcdaniel. no new orders
[2022-06-25 04:53] LABS: MANUAL DIFF FLAG NO
[2022-06-25 04:55] LABS: Basophils Absolute Auto 0.1 X10*3/uL (0.0-0.2); Basophils Percent Auto 0.4 % (0-2); Hematocrit 38.1 % (42.0-52.0); Hemoglobin 13.2 g/dl (14.0-18.0); Imm Gran Abs Auto 0.03 X10*3/uL (0.00-0.03); Imm Gran Pct Auto 0.2 % (0.0-0.4); Lymphocytes Absolute Auto 1.3 X10*3/uL (1.2-4.9); Lymphocytes Percent Auto 10.4 % (20-40); Mean Corpuscular HGB Conc 34.6 g/dl (31.0-36.0); Mean Corpuscular Hemoglobin 29.9 pg (27.0-33.0); Mean Corpuscular Volume 86.4 fL (80.0-98.0); Monocytes Absolute Auto 0.6 X10*3/uL (0.1-1.2); Monocytes Percent Auto 4.9 % (2-11); Neutrophils Absolute Auto 10.7 x10*3/uL (2.0-8.3); Neutrophils Percent Auto 84.1 % (45-73); Platelet Count 153 X10*3/uL (160-400); Red Blood Count 4.41 X10*6/uL (4.60-5.80); Red Cell Distribution Width 13.5 % (11.0-16.0); White Blood Count 12.8 X10*3/uL (4.8-10.8)
[2022-06-25 05:00] LABS: INTERNATIONAL NORM RATIO 2.3 (0.9-1.1); Prothrombin Time 26.9 SEC (10.0-13.1)
[2022-06-25 05:03] LABS: Partial Thromboplastin Time 35.1 SEC (26.0-36.4)
[2022-06-25 05:19] LABS: Alanine Aminotransferase 47 U/L (0-40); Albumin Level 3.2 g/dL (3.5-5.0); Alkaline Phosphatase 53 U/L (39-117); Anion Gap 11 (12-20); Aspartate Amino Transferase 31 U/L (5-37); Bilirubin Total 1.1 mg/dL (0.0-1.0); Blood Urea Nitrogen 8 mg/dL (9-16); Carbon Dioxide 22 mmol/L (22-29); Chloride 110 mmol/L (96-108); Creatinine Clr Calc Pharmacy 129.6; Estimated Glomerular Filt Rate > 60; Glucose Random 116 mg/dL (60-115); Magnesium 1.8 mg/dL (1.6-2.6); Potassium 3.5 mmol/L (3.3-5.1); Sodium 139 mmol/L (135-145); Total Protein 5.3 g/dL (6.5-8.0); Troponin-I High Sensitivity 13.4 ng/L (<3.5-35.0)
[2022-06-25] MEDS: Enoxaparin Sodium 100 MG/ML SYRINGE 90 MG SUBCUT ×2 (06:22→18:07)
[2022-06-25] MEDS: Piperacillin Sodium/Tazobactam 3.375 GM in 0.9 % Sodium Chloride 50 ML IV ×3 (06:23→22:42)
--- NOTE | 2022-06-25 06:36 | PC.NURSE ---
Pt complaint of pain in his left leg. He has a reddened area that i have marked. It is painful to touch and warm to touch. He also has scattered areas of abrasions and scabs. Images taken and sent to MD Zhao
--- NOTE | 2022-06-25 07:39 | P.CONGS_ITS ---
History of Present Illness Consult details Consult date: 06/25/22 Requesting physician: Josh Zhao Narrative: 31-year-old male patient presenting to the emergency department as a overdose. Reports taking hit and subsequently passing out, falling down several steps in the process. He was found down and brought in with CPR. During the resuscitation effort an EJ line was attempted. Subsequent trauma films including CT head neck chest abdomen and pelvis were obtained. CT of the cervical spine was significant for air tracking bilaterally along the s ternocleidomastoid muscle and subcutaneous tissue. Necrotizing fasciitis could not be ruled out. Patient subsequently received Narcan and now is awake and talking. He denies any current neck pain and is able to move his neck freely. He does report pain in the left ankle and knee as well as rib pain as result of the fall. He reports being able to put weight on his leg but does report pain when standing. He denies injecting medication for least 12 years. Surgical consultation was requested for possible necrotizing fasciitis of the neck. Review of Systems Review of Systems: Yes Unobtainable due to mental condition PMFSH Past Medical History Medical History Anticoagulated on Coumadin Substance abuse Surgical History Surgical History Heart valve replaced Social History Social History Household Members: Family Housing: Apartment Do you presently have visiting nurse or other home services: No Patient Tobacco Use Status: Current everyday Tobacco user Tobacco use type: Cigarette Smoked in Last 30 Days: Yes Patient Interested in Nicotine Replacement: Yes (wants nicotine gum) Use of substances other than those prescribed or required for medical reasons: Yes Substance Use Type: Crack/Cocaine and Opiates Substance Use Frequency: Daily Last Used Substance: Just Prior to Admission Have you been hit, kicked, punched, or otherwise hurt by someone within the past year? If so, by whom?: No Do you feel safe in your current relationship?: No Is there a partner from a previous relationship who is making you feel unsafe now?: No Are you made to feel afraid or neglected: No Advance Directives: No Advance Directives Information Provided: No Do you have thoughts of harming others: None Do you have a plan to hurt others: No Plan Recently lost weight without trying: No How much weight loss: Not applicable Eating poorly because of decreased appetite: No Nutrition screen score: 0 Poor oral hygiene: No Meds Allergies Allergy/AdvReac Type Severity Reaction Status Date / Time morphine [MORPHINE] Allergy Unknown ITCHY Verified 04/28/21 14:08 shellfish derived Allergy Unknown SHORTNESS Verified 04/28/21 14:08 [SHELLFISH DERIVED] OF BREATH Sulfa (Sulfonamide Allergy Unknown UNK Verified 04/28/21 14:08 Antibiotics) [SULFA (SULFONAMIDE ANTIBIOTICS)] Active Medications: Current Medications Acetaminophen (Acetaminophen 325 Mg Tablet) 650 mg PO Q6H PRN PRN Reason: Pain, Mild (Pain Scale 1-3) Benztropine Mesylate (Benztropine Mesylate 1 Mg Tablet) 1 mg PO BEDTIME REGAN Enoxaparin Sodium (Enoxaparin Sodium 100 Mg/Ml Syringe) 90 mg 1 mg/kg (90 mg) SUBCUT Q12H [facility] Last Admin: 06/25/22 06:22 Dose: 90 mg Vancomycin HCl 1,000 mg/ (Sodium Chloride) 270 mls @ 270 mls/hr IV Q12H REGAN Piperacillin Sod/Tazobactam (Sod 3.375 gm/ Sodium Chloride) 50 mls @ 100 mls/hr IV Q8H [facility] Last Infusion: 06/25/22 07:05 Dose: Infused Melatonin (Melatonin 3 Mg Tablet) 6 mg PO BEDTIME PRN PRN Reason: Insomnia Metoprolol Succinate (Metoprolol Succinate Er 50 Mg Tab.Er.24h) 50 mg PO DAILY [facility]; Protocol Nicotine Polacrilex (Nicotine Polacrilex 2 Mg Gum) 2 mg BUCCAL Q2H PRN PRN Reason: Nicotine Cravings Pharmacy Consult (Consult Rx Vancomycin Dosing) 1 each MISCELLANE DAILY PRN PRN Reason: Consult order Senna (Sennosides 8.6 Mg Tablet) 17.2 mg PO BEDTIME PRN PRN Reason: Constipation Sodium Chloride (0.9 % Sodium Chloride Flush 3 Ml Syringe) 3 ml IVFLUSH QSHIFT [facility] Warfarin Sodium (Warfarin Sodium 10 Mg Tablet) 10 mg PO DAILY@1800 [facility] Home Medications Medication Instructions Recorded Confirmed Last Taken Type aripiprazole 5 mg tablet 5 mg PO DAILY 04/28/21 06/25/22 Unknown History dextroamphetamine-amphetamine 20 1 tab PO BID 04/28/21 06/25/22 Unknown History mg tablet doxepin 100 mg capsule 100 mg PO BEDTIME 04/28/21 06/25/22 Unknown History metoprolol succinate 50 mg 50 mg PO DAILY 04/28/21 06/25/22 Unknown History tablet,extended release 24 hr benztropine 1 mg tablet 1 tab PO BEDTIME 06/25/22 06/25/22 Unknown History oxcarbazepine 150 mg tablet 1 tab PO BID 06/25/22 06/25/22 Unknown History trazodone 150 mg tablet 1 tab PO BEDTIME 06/25/22 06/25/22 Unknown History warfarin 10 mg tablet 1 tab PO DAILY 06/25/22 06/25/22 Unknown History Physical Exam Vital Signs: Vital Signs: Last Vital Signs Temp 102.1 F H 06/25/22 06:25 Pulse 77 06/25/22 07:15 Resp 17 06/25/22 07:15 BP 116/65 06/25/22 07:15 Pulse Ox 96 06/25/22 07:15 O2 Del Method 06/25/22 07:15 BMI result Body Mass Index 29.0 Const: General: lethargic, poor hygiene and tired appearing Nutritional Appearance: thin Orientation/consciousness: lethargic HEENT: Other: Bilateral injection sites noted from attempted EJ in the cervical soft tissues. No tenderness noted to deep palpation along the subcutaneous tissue and sternocleidomastoid bilaterally. No subcutaneous emphysema is palpable. Patient is able to freely move his neck in all directions without restriction. No erythema is noted in the skin. Resp: Other: Breathing comfortably on room air, no respiratory distress. GI: Other: Soft, nondistended, nontender to palpation, no rebound guarding or rigidity. Skin: Other: Warm, dry, no rash, erythema is noted below in extremity. Extrem: Other: Erythema noted over the left ankle but no fluctuance or subcu emphysema. No track bryan identified. Patient is able to flex and extend ankle and knee without pain. Skin is warm with a brisk capillary refill at the toes. Results Labs 06/25/22 04:48 06/25/22 04:48 Labs: Abnormal lab results 06/24/22 06/24/22 06/24/22 Range/Units 18:42 18:42 18:42 WBC 20.0 H (4.8-10.8) X10*3/uL RBC (4.60-5.80) X10*6/uL Hgb (14.0-18.0) g/dl Hct 40.6 L (42.0-52.0) % Plt Count (160-400) X10*3/uL Immature Gran % (Auto) 0.5 H (0.0-0.4) % Neut % (Auto) 89.0 H (45-73) % Lymph % (Auto) 3.3 L (20-40) % Lymph # (Auto) 0.7 L (1.2-4.9) X10*3/uL [place] # (Auto) 1.3 H (0.1-1.2) X10*3/uL Abs Immat Gran (auto) 0.09 H (0.00-0.03) X10*3/uL Absolute Neuts (auto) 17.8 H (2.0-8.3) x10*3/uL PT 25.0 H (10.0-13.1) SEC INR 2.1 H (0.9-1.1) Chloride (96-108) mmol/L Anion Gap (12-20) BUN (9-16) mg/dL Random Glucose (60-115) mg/dL Calcium (8.4-10.2) mg/dL Total Bilirubin 1.5 H (0.0-1.0) mg/dL AST 45 H (5-37) U/L ALT 65 H (0-40) U/L Total Protein (6.5-8.0) g/dL Albumin (3.5-5.0) g/dL Urine Opiates Screen (Not Detect) Urine Fentanyl Screen (Not Detect) Urine Cocaine Screen (Not Detect) 06/24/22 06/25/22 06/25/22 Range/Units 18:42 01:52 01:52 WBC 14.0 H (4.8-10.8) X10*3/uL RBC (4.60-5.80) X10*6/uL Hgb (14.0-18.0) g/dl Hct 40.8 L (42.0-52.0) % Plt Count (160-400) X10*3/uL Immature Gran % (Auto) (0.0-0.4) % Neut % (Auto) 87.3 H (45-73) % Lymph % (Auto) 7.1 L (20-40) % Lymph # (Auto) 1.0 L (1.2-4.9) X10*3/uL [place] # (Auto) (0.1-1.2) X10*3/uL Abs Immat Gran (auto) 0.06 H (0.00-0.03) X10*3/uL Absolute Neuts (auto) 12.2 H (2.0-8.3) x10*3/uL PT (10.0-13.1) SEC INR (0.9-1.1) Chloride 109 H (96-108) mmol/L Anion Gap 10 L (12-20) BUN (9-16) mg/dL Random Glucose 122 H (60-115) mg/dL Calcium 8.3 L D (8.4-10.2) mg/dL Total Bilirubin (0.0-1.0) mg/dL AST (5-37) U/L ALT (0-40) U/L Total Protein (6.5-8.0) g/dL Albumin (3.5-5.0) g/dL Urine Opiates Screen POSITIVE H (Not Detect) Urine Fentanyl Screen POSITIVE H (Not Detect) Urine Cocaine Screen POSITIVE H (Not Detect) 06/25/22 06/25/22 06/25/22 Range/Units 04:48 04:48 04:48 WBC 12.8 H (4.8-10.8) X10*3/uL RBC 4.41 L (4.60-5.80) X10*6/uL Hgb 13.2 L (14.0-18.0) g/dl Hct 38.1 L (42.0-52.0) % Plt Count 153 L (160-400) X10*3/uL Immature Gran % (Auto) (0.0-0.4) % Neut % (Auto) 84.1 H (45-73) % Lymph % (Auto) 10.4 L (20-40) % Lymph # (Auto) (1.2-4.9) X10*3/uL [place] # (Auto) (0.1-1.2) X10*3/uL Abs Immat Gran (auto) (0.00-0.03) X10*3/uL Absolute Neuts (auto) 10.7 H (2.0-8.3) x10*3/uL PT 26.9 H (10.0-13.1) SEC INR 2.3 H (0.9-1.1) Chloride 110 H (96-108) mmol/L Anion Gap 11 L (12-20) BUN 8 L (9-16) mg/dL Random Glucose 116 H (60-115) mg/dL Calcium 8.0 L (8.4-10.2) mg/dL Total Bilirubin 1.1 H (0.0-1.0) mg/dL AST (5-37) U/L ALT 47 H (0-40) U/L Total Protein 5.3 L (6.5-8.0) g/dL Albumin 3.2 L (3.5-5.0) g/dL Urine Opiates Screen (Not Detect) Urine Fentanyl Screen (Not Detect) Urine Cocaine Screen (Not Detect) Short CBC 06/24/22 06/25/22 06/25/22 Range/Units 18:42 01:52 04:48 WBC 20.0 H 14.0 H 12.8 H (4.8-10.8) X10*3/uL Hgb 14.5 14.1 13.2 L (14.0-18.0) g/dl Hct 40.6 L 40.8 L 38.1 L (42.0-52.0) % Plt Count 198 168 153 L (160-400) X10*3/uL BMP 06/24/22 06/25/22 06/25/22 18:42 01:52 04:48 Sodium 139 139 139 Potassium 3.9 3.8 3.5 Chloride 105 109 H 110 H Carbon Dioxide 25 24 22 BUN 12 9 8 L Creatinine 0.77 0.81 0.84 Calcium 9.3 8.3 L D 8.0 L Liver Function 06/24/22 06/25/22 Range/Units 18:42 04:48 Total Bilirubin 1.5 H 1.1 H (0.0-1.0) mg/dL Direct Bilirubin 0.5 (0.0-0.5) mg/dL AST 45 H 31 (5-37) U/L ALT 65 H 47 H (0-40) U/L Alkaline Phosphatase 74 53 (39-117) U/L Albumin 4.0 3.2 L (3.5-5.0) g/dL Urine 06/24/22 Range/Units 18:42 Urine Color Yellow Urine Appearance Clear Urine pH 7.5 (5.0-9.0) Ur Specific [place] <= 1.005 (1.005-1.025) Urine Protein Negative (Neg-Trace) mg/dL Urine Glucose (UA) Negative (Negative) mg/dL All other labs normal. Assessment and Plan (1) Drug overdose: Status: Acute (2) Fall: Status: Acute (3) Cellulitis: Status: Acute Plan 41-year-old male patient with substance abuse presenting with an overdose, requiring Narcan. Patient apparently fell several steps resulting in chest and left lower extremity trauma. In the workup for cervical spine injury air was noted in the soft tissues surrounding the sternocleidomastoid muscles Bilaterally. Suspicion was raised for necrotizing fasciitis. The patient denies injecting his neck and currently denies pain with palpation and pain with motion. On examination the skin is normal color without palpable fluctuance or subcutaneous emphysema. Air most likely is a result of venous access attempts. If there is further concern about necrotizing fasciitis a repeat CT of the neck would be helpful to see if air has increased. Currently patient does not show evidence of necrotizing fasciitis. Time Spent With Patient Time: Total time managing care of this patient today ____ minutes. Procedures Date of Service Date of Service: 06/25/22
[2022-06-25] MEDS: 0.9 % Sodium Chloride Flush 3 ML SYRINGE IVFLUSH ×3 (07:54→22:42)
[2022-06-25] MEDS: Metoprolol Succinate ER 50 MG TAB.ER.24H PO (07:54)
--- NOTE | 2022-06-25 08:19 | PHA.MEDREC ---
Pharmacy Consult ? Medication Reconciliation Pharmacy has completed the medication reconciliation. Patient stated he has no taken his medications in a long time when asked he said about a week. He stated hes no longer on oxcarbazepine, doxepin and lamotrigine (gave him a rash).
--- NOTE | 2022-06-25 09:26 | MHC.CM.PN ---
[facility] DELIVERED PT [facility] [address] [place] [address] [place] INDEPENDENT AT BASELINE. NO HCP, DECLINES AT THIS TIME. + COVID VAX X1 WITH MODERNA. UNABLE TO RECALL NAME OF PCP BUT GOES TO [facility] IN [place]. DP: HOME, TO COUSIN'S HOUSE, NO SERVICES ANTICIPATED. WILL NEED [facility]YFT TRANSPORT ON DC.
--- NOTE | 2022-06-25 09:53 | PHA.PROG ---
Admission Date/Time: June 25, 2022 02:46 Indication: cellulitis/sepsis Weight in k.8 kg Adjusted body weight in Kg: [place] body weight in Kg: Obesity Dosing Indication % IBW: Serum Creatinine - Last 168 Hours 06/24/22 06/25/22 06/25/22 18:42 01:52 04:48 Creatinine 0.77 0.81 0.84 Estimated CrCl and GFR - Last 168 Hours 06/24/22 06/25/22 06/25/22 18:42 01:52 04:48 Estim Creat Clear Calc 141.3 134.4 129.6 Estimated GFR > 60 > 60 > 60 Vancomycin Loading Dose: 2000mg x 1 Current Vancomycin Dosing Regimen: 1250mg Q12H Vancomycin Monitoring using AUC goal of 400 - 600 range with trough as surrogate marker: 464 mg/L Date and Time for next Vancomycin Level to be drawn: 06/26/22 @0800 Pharmacist Comments on Vancomycin Plan: Will continue to monitor Vancomycin dosing will take advantage of [employer] as a clinical decision support tool that uses Bayesian modeling to calculate individual patient's pharmacokinetic parameters and forecast the patient's drug concentration time course with the target goal AUC 24 range of 400 - 600 mg/L/hr.
[2022-06-25] MEDS: vancomycin HCL 1,250 MG in 0.9 % Sodium Chloride 250 ML 166.67 MG IV (10:49)
--- NOTE | 2022-06-25 14:33 | P.EN_ITS ---
Event Note Date of Service: 06/25/22 Event Note: 41M with remote hx IVDA Hx Endocarditis s/p Mechanical valve replacement? in 2013 on Coumadin (Goal INR 2.5-3.5), Polysubstance abuse; HTN, Anxiety, Depression, Bipolar; Tobacco dependence p/w Drug overdose, Fall and unresponsive. history and physical reviewed, patient awake alert complaining of left leg pain at site of her redness, has multiple dry scabs on upper extremities and back was sleeping on floor, was using crack and is sniffing heroin, denies neck pain or discomfort no fever chills overnight. 41M with remote hx IVDA Hx Endocarditis s/p Mechanical valve replacement? in 2013 on Coumadin (Goal INR 2.5-3.5), Polysubstance abuse; HTN, Anxiety, Depre ssion, Bipolar; Tobacco dependence p/w Drug overdose, Fall and unresponsive. Assessment plan Sepsis likely due to Cellulitis on Left leg: persistent left leg redness, fevers, no in duration,no fluctuation. CT chest unremarkable, UA negative c/w IV vanc and Zosyn. follow blood cultures ID consult pending. Gas in Neck soft tissues: No local signs of infection. patient denies pain,no swelling,no crepitus repeat CT neck this afternoon, likley due to venous acess Unresponsive episode:?Secondary to Drug overdose. Responded to 8mg narcan at the seen. Initially required CPR and Bagging brefily. Currently Mental status back to normal. Answering appropriatly. Non Focal exam. Troponin 5.6---> Repeat 13.4, EKG showed nonspecific T-wave abnormality, no previous EKGs available no chest pain. Fall:?Due to over dose. pt ambulating independently currently, but reports pain in Left knee. Imaging negative for fracture. PT/OT eventually. Pain control. Hx MEchanical Heart valve: INR subtherapeutic at 2.3 today, continue coumadin. f/u INR, bridge with Lovenox. Tobacco dependence: Counselled on smoking cessation. add nicotine gums. Hx Anxiety/Depression/Bipolar: pt reports he has not been taking his psych meds for about a week, will gradually resume medications. DVT ppx: pt on Coumadin Full code. Time Spent With Patient Time: Total time managing care of this patient today ____ minutes.
[2022-06-25] MEDS: Warfarin Sodium 10 MG TABLET PO (18:07)
[2022-06-25] MEDS: iohexoL 350 MG/ML 100 ML INFUS..BTL 60 ML IV (20:17)
[2022-06-25] MEDS: Benztropine Mesylate 1 MG TABLET PO (22:42)
[2022-06-25] MEDS: Amphetamine Mixed Salts 20 MG TABLET PO (22:42)
[2022-06-26] MEDS: vancomycin HCL 1,250 MG in 0.9 % Sodium Chloride 250 ML 166.67 MG IV (00:09)
[2022-06-26] MEDS: HYDROmorphone HCl 2 MG TABLET 1 MG PO (00:29)
[2022-06-26 04:00] VITALS: BP 133/62; PULSE 66; RESP 20; TEMP 37.1; O2SAT 97
[2022-06-26] MEDS: oxyCODONE HCl Immed Release 5 MG TABLET PO (04:37)
[2022-06-26] MEDS: Piperacillin Sodium/Tazobactam 3.375 GM in 0.9 % Sodium Chloride 50 ML IV ×3 (04:38→21:18)
[2022-06-26] MEDS: Enoxaparin Sodium 100 MG/ML SYRINGE 90 MG SUBCUT ×2 (04:38→16:41)
[2022-06-26 05:13] LABS: Hematocrit 39.6 % (42.0-52.0); Hemoglobin 13.7 g/dl (14.0-18.0); Mean Corpuscular HGB Conc 34.6 g/dl (31.0-36.0); Mean Corpuscular Hemoglobin 29.7 pg (27.0-33.0); Mean Corpuscular Volume 85.7 fL (80.0-98.0); Mean Platelet Volume 12.7 fL (9.4-12.4); Platelet Count 165 X10*3/uL (160-400); Red Blood Count 4.62 X10*6/uL (4.60-5.80); Red Cell Distribution Width 13.6 % (11.0-16.0)
[2022-06-26 05:20] LABS: INTERNATIONAL NORM RATIO 1.4 (0.9-1.1); Prothrombin Time 15.8 SEC (10.0-13.1)
[2022-06-26 05:44] LABS: Creatinine Clr Calc Pharmacy 149.6; Estimated Glomerular Filt Rate > 60
[2022-06-26] MEDS: Metoprolol Succinate ER 50 MG TAB.ER.24H PO (07:40)
[2022-06-26] MEDS: Amphetamine Mixed Salts 20 MG TABLET PO ×2 (07:41→20:14)
[2022-06-26] MEDS: Acetaminophen 325 MG TABLET 650 MG PO ×2 (07:41→16:43)
[2022-06-26] MEDS: 0.9 % Sodium Chloride Flush 3 ML SYRINGE IVFLUSH ×3 (07:41→19:12)
[2022-06-26 07:42] VITALS: BP 107/54; PULSE 67; RESP 18; TEMP 37; O2SAT 94
[2022-06-26] MEDS: ARIPiprazole 5 MG TABLET PO (07:42)
[2022-06-26 08:39] LABS: Vancomycin Trough 8.5 mcg/mL (10.0-20.0)
--- NOTE | 2022-06-26 08:49 | HE.PHANOTE ---
RE: vanco Trough on 06/26 came back at 8.5mg/L. Increased dose to 1500mg Q12H with predicted AUC 418mg/L, trough of 10.3. Next level to be drawn 06/27 @1999
[2022-06-26] MEDS: vancomycin HCL 1,500 MG in 0.9 % Sodium Chloride 500 ML 333.33 MG IV ×2 (09:48→22:03)
[2022-06-26] MEDS: HYDROmorphone HCl 1 MG/ML SYRINGE IVPUSH ×3 (09:48→19:12)
[2022-06-26 11:33] VITALS: BP 96/51; PULSE 58; RESP 16; TEMP 36.3; O2SAT 99
--- NOTE | 2022-06-26 12:19 | MHC.CM.PN ---
EMR REVIEWED PER MD ROUNDS, PT NOT MEDICALLY READY FOR DC ( IV ABT, SEVERE CELLULITIS) CM WILL CONTINUE TO FOLLOW
--- NOTE | 2022-06-26 13:08 | PM.CNGS ---
History of Present Illness Consult details Consult date: 06/26/22 Narrative: Patient has been hospitalized for status post drug overdose and was actually seen by surgery yesterday for concern of subcutaneous emphysema and crepitus status post attempted central access placement. Current consult is for evaluation of a left anterior distal tibial soft tissue cellulitis. He has had this discomfort/pain for few days time. Because of progression of symptoms, surgical consult has been obtained. Chart was reviewed and patient evaluated. Exam is most noteworthy for erythematous ,warm ,tender area of the left distal anterior lateral tibia. There is a small eschar over the central part of the area. The cellulitic process has been delineated by a marker and is several cm in diameter. Remainder of left lower extremity is neurovascularly intact. Assessment/plan; discussed with the patient's hospitalist the current recommendation for an ultrasound of the affected area to rule out underlying abscess. For further interventions and studies will be directed by the results of the above-mentioned studies and the patient's clinical course. [facility] Past Medical History Medical History Anticoagulated on Coumadin Substance abuse Surgical History Surgical History Heart valve replaced Social History Social History Household Members: Family Housing: Apartment Do you presently have visiting nurse or other home services: No Patient Tobacco Use Status: Current everyday Tobacco user Tobacco use type: Cigarette Smoked in Last 30 Days: Yes Patient Interested in Nicotine Replacement: Yes (wants nicotine gum) Use of substances other than those prescribed or required for medical reasons: Yes Substance Use Type: Crack/Cocaine and Opiates Substance Use Frequency: Daily Last Used Substance: Just Prior to Admission Currently Displaying Signs/Symptoms of Drug Intoxication Withdrawal: No Have you been hit, kicked, punched, or otherwise hurt by someone within the past year? If so, by whom?: No Do you feel safe in your current relationship?: No Is there a partner from a previous relationship who is making you feel unsafe now?: No Are you made to feel afraid or neglected: No Advance Directives: No Advance Directives Information Provided: No Do you have thoughts of harming others: None Do you have a plan to hurt others: No Plan Recently lost weight without trying: No How much weight loss: Not applicable Eating poorly because of decreased appetite: No Nutrition screen score: 0 Poor oral hygiene: No service: No Current occupational status: unemployed Meds Allergies Allergy/AdvReac Type Severity Reaction Status Date / Time morphine [MORPHINE] Allergy Unknown ITCHY Verified 04/28/21 14:08 shellfish derived Allergy Unknown SHORTNESS Verified 04/28/21 14:08 [SHELLFISH DERIVED] OF BREATH Sulfa (Sulfonamide Allergy Unknown UNK Verified 04/28/21 14:08 Antibiotics) [SULFA (SULFONAMIDE ANTIBIOTICS)] Active Medications: Current Medications Acetaminophen (Acetaminophen 325 Mg Tablet) 650 mg PO Q6H PRN PRN Reason: Pain, Mild (Pain Scale 1-3) Last Admin: 06/26/22 07:41 Dose: 650 mg Amphetamine/Dextroamphetamine (Amphetamine Mixed Salts 20 Mg Tablet) 20 mg PO BID [facility] Last Admin: 06/26/22 07:41 Dose: 20 mg Aripiprazole (Aripiprazole 5 Mg Tablet) 5 mg PO DAILY [facility] Last Admin: 06/26/22 07:42 Dose: 5 mg Benztropine Mesylate (Benztropine Mesylate 1 Mg Tablet) 1 mg PO BEDTIME [facility] Last Admin: 06/25/22 22:42 Dose: 1 mg Enoxaparin Sodium (Enoxaparin Sodium 100 Mg/Ml Syringe) 90 mg 1 mg/kg (90 mg) SUBCUT Q12H [facility] Last Admin: 06/26/22 04:38 Dose: 90 mg Hydromorphone HCl (Hydromorphone Hcl 1 Mg/Ml Syringe) 1 mg IVPUSH Q4H PRN; Protocol PRN Reason: Pain, Severe (Pain Scale 7-10) Last Admin: 06/26/22 09:48 Dose: 1 mg Piperacillin Sod/Tazobactam (Sod 3.375 gm/ Sodium Chloride) 50 mls @ 100 mls/hr IV Q8H [facility] Last Infusion: 06/26/22 05:29 Dose: Infused Vancomycin HCl 1,500 mg/ (Sodium Chloride) 500 mls @ 333.333 mls/hr IV Q12H [facility] Last Infusion: 06/26/22 12:09 Dose: Infused Melatonin (Melatonin 3 Mg Tablet) 6 mg PO BEDTIME PRN PRN Reason: Insomnia Metoprolol Succinate (Metoprolol Succinate Er 50 Mg Tab.Er.24h) 50 mg PO DAILY [facility]; Protocol Last Admin: 06/26/22 07:40 Dose: 50 mg Nicotine Polacrilex (Nicotine Polacrilex 2 Mg Gum) 2 mg BUCCAL Q2H PRN PRN Reason: Nicotine Cravings Pharmacy Consult (Consult Rx Vancomycin Dosing) 1 each MISCELLANE DAILY PRN PRN Reason: Consult order Senna (Sennosides 8.6 Mg Tablet) 17.2 mg PO BEDTIME PRN PRN Reason: Constipation Sodium Chloride (0.9 % Sodium Chloride Flush 3 Ml Syringe) 3 ml IVFLUSH QSHIFT [facility] Last Admin: 06/26/22 07:41 Dose: 3 ml Warfarin Sodium (Warfarin Sodium 10 Mg Tablet) 10 mg PO DAILY@1800 [facility] Last Admin: 06/25/22 18:07 Dose: 10 mg Home Medications Medication Instructions Recorded Confirmed Last Taken Type aripiprazole 5 mg tablet 5 mg PO DAILY 04/28/21 06/25/22 Unknown History dextroamphetamine-amphetamine 20 1 tab PO BID 04/28/21 06/25/22 Unknown History mg tablet metoprolol succinate 50 mg 50 mg PO DAILY 04/28/21 06/25/22 Unknown History tablet,extended release 24 hr aripiprazole 20 mg tablet 1 tab PO DAILY 06/25/22 06/25/22 Unknown History benztropine 1 mg tablet 1 tab PO BEDTIME 06/25/22 06/25/22 Unknown History trazodone 150 mg tablet 1 tab PO BEDTIME 06/25/22 06/25/22 Unknown History warfarin 10 mg tablet 1 tab PO DAILY 06/25/22 06/25/22 Unknown History Physical Exam Vital Signs: Vital Signs: Last Vital Signs Temp 97.4 F 06/26/22 11:33 Pulse 58 06/26/22 11:33 Resp 16 06/26/22 11:33 BP 96/51 L 06/26/22 11:33 Pulse Ox 99 06/26/22 11:33 O2 Del Method 06/26/22 11:33 BMI result Body Mass Index 29.0 Results Labs 06/26/22 04:25 06/26/22 04:25 Labs: Abnormal lab results 06/26/22 06/26/22 06/26/22 Range/Units 04:25 04:25 07:59 WBC 11.0 H (4.8-10.8) X10*3/uL Hgb 13.7 L (14.0-18.0) g/dl Hct 39.6 L (42.0-52.0) % MPV 12.7 H (9.4-12.4) fL PT 15.8 H (10.0-13.1) SEC INR 1.4 H (0.9-1.1) Vancomycin Trough 8.5 L (10.0-20.0) mcg/mL Short CBC 06/26/22 Range/Units 04:25 WBC 11.0 H (4.8-10.8) X10*3/uL Hgb 13.7 L (14.0-18.0) g/dl Hct 39.6 L (42.0-52.0) % Plt Count 165 (160-400) X10*3/uL BMP 06/26/22 04:25 Creatinine 0.74 Urine 06/24/22 Range/Units 18:42 Urine Color Yellow Urine Appearance Clear Urine pH 7.5 (5.0-9.0) Ur Specific [place] <= 1.005 (1.005-1.025) Urine Protein Negative (Neg-Trace) mg/dL Urine Glucose (UA) Negative (Negative) mg/dL All other labs normal. Assessment and Plan (1) Cellulitis: Status: Acute Plan See HPI Time Spent With Patient Time: Total time managing care of this patient today ____ minutes. 20 Procedures Date of Service Date of Service: 06/26/22
--- NOTE | 2022-06-26 13:12 | HO.PM.IMPN ---
Subjective Subjective Date of Service: 06/26/22 Interval History: complaining of severe left leg pain was unable to sleep all night, tolerating diet no nausea no vomiting, no diarrhea, denies fever chills denies withdrawal symptoms since recently relapsed on sniffing heroin and crack cocaine Review of Systems Review of Systems: Yes all other systems are reviewed and are negative Physical Exam Vital Signs: Vital Signs: Last Vital Signs Temp 97.4 F 06/26/22 11:33 Pulse 58 06/26/22 11:33 Resp 16 06/26/22 11:33 BP 96/51 L 06/26/22 11:33 Pulse Ox 99 06/26/22 11:33 O2 Del Method 06/26/22 11:33 BMI result Body Mass Index 29.0 Const: Other: General: Alert, Oriented X3.? No acute distress.? Neck: Normal inspection.? Neck supple, no swelling, No crepitus CVS: Normal heart rate and rhythm. Pulm:Clear to auscultation no wheeze no crackles Abdomen: Soft and nontender. No rigidity. No distention. Skin:? localize erythema to left leg , no fluctuation, reddish purple discoloration, redness extending towards knee , multiple dry scabs upper extremities and back, no track bryan Extremities: No lower extremity edema Neuro:Non focal psych appropriate affect Objective Data Active Medications Acetaminophen (Acetaminophen 325 Mg Tablet) 650 mg PO Q6H PRN PRN Reason: Pain, Mild (Pain Scale 1-3) Last Admin: 06/26/22 07:41 Dose: 650 mg Documented By: JOSH Amphetamine/Dextroamphetamine (Amphetamine Mixed Salts 20 Mg Tablet) 20 mg PO BID [facility] Last Admin: 06/26/22 07:41 Dose: 20 mg Documented By: JOSH Aripiprazole (Aripiprazole 5 Mg Tablet) 5 mg PO DAILY [facility] Last Admin: 06/26/22 07:42 Dose: 5 mg Documented By: JOSH Benztropine Mesylate (Benztropine Mesylate 1 Mg Tablet) 1 mg PO BEDTIME [facility] Last Admin: 06/25/22 22:42 Dose: 1 mg Documented By: PAPI Enoxaparin Sodium (Enoxaparin Sodium 100 Mg/Ml Syringe) 90 mg 1 mg/kg (90 mg) SUBCUT Q12H [facility] Last Admin: 06/26/22 04:38 Dose: 90 mg Documented By: PAPI Hydromorphone HCl (Hydromorphone Hcl 1 Mg/Ml Syringe) 1 mg IVPUSH Q4H PRN; Protocol PRN Reason: Pain, Severe (Pain Scale 7-10) Last Admin: 06/26/22 09:48 Dose: 1 mg Documented By: JOSH Piperacillin Sod/Tazobactam (Sod 3.375 gm/ Sodium Chloride) 50 mls @ 100 mls/hr IV Q8H [facility] Last Infusion: 06/26/22 05:29 Dose: 0 mls/hr Documented By: PAPI Vancomycin HCl 1,500 mg/ (Sodium Chloride) 500 mls @ 333.333 mls/hr IV Q12H [facility] Last Infusion: 06/26/22 12:09 Dose: 0 mls/hr Documented By: JOSH Melatonin (Melatonin 3 Mg Tablet) 6 mg PO BEDTIME PRN PRN Reason: Insomnia Metoprolol Succinate (Metoprolol Succinate Er 50 Mg Tab.Er.24h) 50 mg PO DAILY [facility]; Protocol Last Admin: 06/26/22 07:40 Dose: 50 mg Documented By: JOSH Nicotine Polacrilex (Nicotine Polacrilex 2 Mg Gum) 2 mg BUCCAL Q2H PRN PRN Reason: Nicotine Cravings Pharmacy Consult (Consult Rx Vancomycin Dosing) 1 each MISCELLANE DAILY PRN PRN Reason: Consult order Senna (Sennosides 8.6 Mg Tablet) 17.2 mg PO BEDTIME PRN PRN Reason: Constipation Sodium Chloride (0.9 % Sodium Chloride Flush 3 Ml Syringe) 3 ml IVFLUSH QSHIFT [facility] Last Admin: 06/26/22 07:41 Dose: 3 ml Documented By: JOSH Warfarin Sodium (Warfarin Sodium 10 Mg Tablet) 10 mg PO DAILY@1800 [facility] Last Admin: 06/25/22 18:07 Dose: 10 mg Documented By: JOSH Labs 06/26/22 04:25 06/26/22 04:25 Labs: Laboratory Results - last 24 hr 06/26/22 06/26/22 06/26/22 04:25 04:25 04:25 MCV 85.7 MCH 29.7 MCHC 34.6 RDW 13.6 Plt Count 165 MPV 12.7 H Absolute Nucleated RBC 0.000 Nucleated RBC % (auto) 0.0 PT 15.8 H INR 1.4 H Estim Creat Clear Calc 149.6 Estimated GFR > 60 Vancomycin Trough 06/26/22 07:59 MCV MCH MCHC RDW Plt Count MPV Absolute Nucleated RBC Nucleated RBC % (auto) PT INR Estim Creat Clear Calc Estimated GFR Vancomycin Trough 8.5 L Microbiology Microbiology Results: Microbiology 06/24/22 18:42 Blood Culture - Preliminary Blood - Venous No growth after 24 hours. 06/24/22 18:42 Blood Culture - Preliminary Blood - Venous No growth after 24 hours. Assessment and Plan (1) Drug overdose: Status: Acute (2) Fall: Status: Acute (3) Cellulitis: Status: Acute (4) Depression: Status: Acute Plan Sepsis likely due to Cellulitis Left leg: noted to have worsening left leg redness extending towards knee, with severe pain, no recurrent fevers, WBC trended down from 20,[address] chest unremarkable, UA negative c/w IV vanc and Zosyn day 2. , blood cultures x2 negative obtain ultrasound leg to rule out necrotizing fasciitis, surgical consult obtained added iv Dilaudid for pain Gas in Neck soft tissues: No local signs of infection. patient denies pain,no swelling,no crepitus repeat CT neck this afternoon showed resolution of gas, likley due to venous acess, no further intervention Unresponsive episode:?Secondary to Drug overdose. Responded to 8mg narcan at the scene. Initially required CPR and Bagging brefily. Currently Mental status back to normal. Answering appropriatly. Non Focal exam. Troponin 5.6---> Repeat 13.4, EKG showed nonspecific T-wave abnormality, no previous EKGs available no chest pain. follow-up with care team Fall:?Due to over dose. pt ambulating independently reports pain in Left knee. Imaging negative for fracture. PT/OT if needed Hx Aortic Mechanical Heart valve: INR subtherapeutic at 1.4 on coumadin 10mg. f/u INR,?cont. bridge with Lovenox. Tobacco dependence: Counselled on smoking cessation. add nicotine gums. Hx Anxiety/Depression/Bipolar: gradually resume medications. DVT ppx: pt on Coumadin/lovenox Full code. need continued inpatient hospitalization due to left leg cellulitis and severe pain Time Spent With Patient Time: Total time managing care of this patient today ____ minutes. Quality Stroke Does the patient have a stroke diagnosis?: No VTE Prior VTE?: No VTE Risk Level:: Medical - moderate - high VTE Device Contraindication: Treatment Not Indicated VTE Drug Contraindication: N/A - Med Ordered
[2022-06-26 15:10] VITALS: BP 119/82; PULSE 64; RESP 18; TEMP 37; O2SAT 96
[2022-06-26] MEDS: Warfarin Sodium 10 MG TABLET PO (16:39)
[2022-06-26] MEDS: Nicotine Polacrilex 2 MG GUM BUCCAL (19:26)
[2022-06-26 19:39] VITALS: BP 104/58; PULSE 53; RESP 18; TEMP 36.8; O2SAT 98
[2022-06-26] MEDS: Benztropine Mesylate 1 MG TABLET PO (20:14)
[2022-06-27] VITALS: BP 111/58; PULSE 52; RESP 18; TEMP 36.6; O2SAT 98
[2022-06-27] MEDS: HYDROmorphone HCl 1 MG/ML SYRINGE IVPUSH ×4 (00:55→13:11)
[2022-06-27] MEDS: Acetaminophen 325 MG TABLET 650 MG PO (02:53)
[2022-06-27 03:07] VITALS: BP 135/74; PULSE 78; RESP 18; TEMP 36.6; O2SAT 98
[2022-06-27] MEDS: Enoxaparin Sodium 100 MG/ML SYRINGE 90 MG SUBCUT (04:58)
[2022-06-27] MEDS: Piperacillin Sodium/Tazobactam 3.375 GM in 0.9 % Sodium Chloride 50 ML IV (04:59)
[2022-06-27 06:10] LABS: Hematocrit 41.6 % (42.0-52.0); Hemoglobin 13.8 g/dl (14.0-18.0); Mean Corpuscular HGB Conc 33.2 g/dl (31.0-36.0); Mean Corpuscular Hemoglobin 29.2 pg (27.0-33.0); Mean Corpuscular Volume 88.1 fL (80.0-98.0); Mean Platelet Volume 12.7 fL (9.4-12.4); Platelet Count 185 X10*3/uL (160-400); Red Blood Count 4.72 X10*6/uL (4.60-5.80); Red Cell Distribution Width 13.4 % (11.0-16.0); White Blood Count 7.8 X10*3/uL (4.8-10.8)
[2022-06-27 06:32] LABS: Creatinine Clr Calc Pharmacy 147.6; Estimated Glomerular Filt Rate > 60
[2022-06-27] MEDS: Nicotine Polacrilex 2 MG GUM BUCCAL (06:34)
[2022-06-27 06:50] LABS: INTERNATIONAL NORM RATIO 1.3 (0.9-1.1); Prothrombin Time 14.9 SEC (10.0-13.1)
[2022-06-27 08:00] VITALS: BP 109/59; PULSE 74; RESP 18; TEMP 36.8; O2SAT 98
[2022-06-27] MEDS: ARIPiprazole 5 MG TABLET PO (09:14)
[2022-06-27] MEDS: Amphetamine Mixed Salts 20 MG TABLET PO (09:14)
[2022-06-27] MEDS: 0.9 % Sodium Chloride Flush 3 ML SYRINGE IVFLUSH (09:14)
[2022-06-27] MEDS: vancomycin HCL 1,500 MG in 0.9 % Sodium Chloride 500 ML 333.33 MG IV (09:16)
[2022-06-27 11:12] VITALS: BP 155/81; PULSE 57; RESP 18; TEMP 36.6; O2SAT 100
--- NOTE | 2022-06-27 12:02 | P.PNGS_ITS ---
Subjective Subjective Date of Service: 06/27/22 Interval history: Patient has modest improvement of his left lower leg discomfort. Exam finds some modest edema but the cellulitis has not extended beyond the previously marked area. No fluctuance appreciated. Extremity is neurovascular ly intact. Ultrasound from yesterday evening shows no fluid collections. A/P continue current therapy, elevation as much as tolerated, IV antibiotics, follow-up p.r.n. unless symptoms progress/abscess develops. Physical Exam Vital Signs: Vital Signs: Last Vital Signs Temp 97.9 F 06/27/22 11:12 Pulse 57 06/27/22 11:12 Resp 18 06/27/22 11:12 BP 155/81 H 06/27/22 11:12 Pulse Ox 100 06/27/22 11:12 O2 Del Method 06/27/22 11:12 BMI result Body Mass Index 29.0 Objective Data Active Medications Acetaminophen (Acetaminophen 325 Mg Tablet) 650 mg PO Q6H PRN PRN Reason: Pain, Mild (Pain Scale 1-3) Last Admin: 06/27/22 02:53 Dose: 650 mg Documented By: PAPI Amphetamine/Dextroamphetamine (Amphetamine Mixed Salts 20 Mg Tablet) 20 mg PO BID [facility] Last Admin: 06/27/22 09:14 Dose: 20 mg Documented By: SALBADOR Aripiprazole (Aripiprazole 5 Mg Tablet) 5 mg PO DAILY [facility] Last Admin: 06/27/22 09:14 Dose: 5 mg Documented By: SALBADOR Benztropine Mesylate (Benztropine Mesylate 1 Mg Tablet) 1 mg PO BEDTIME [facility] Last Admin: 06/26/22 20:14 Dose: 1 mg Documented By: PAPI Enoxaparin Sodium (Enoxaparin Sodium 100 Mg/Ml Syringe) 90 mg 1 mg/kg (90 mg) SUBCUT Q12H [facility] Last Admin: 06/27/22 04:58 Dose: 90 mg Documented By: PAPI Hydromorphone HCl (Hydromorphone Hcl 1 Mg/Ml Syringe) 1 mg IVPUSH Q4H PRN; Protocol PRN Reason: Pain, Severe (Pain Scale 7-10) Last Admin: 06/27/22 09:13 Dose: 1 mg Documented By: SALBADOR Piperacillin Sod/Tazobactam (Sod 3.375 gm/ Sodium Chloride) 50 mls @ 100 mls/hr IV Q8H [facility] Last Infusion: 06/27/22 06:01 Dose: 0 mls/hr Documented By: PAPI Vancomycin HCl 1,500 mg/ (Sodium Chloride) 500 mls @ 333.333 mls/hr IV Q12H [facility] Last Infusion: 06/27/22 11:54 Dose: 0 mls/hr Documented By: SALBADOR Melatonin (Melatonin 3 Mg Tablet) 6 mg PO BEDTIME PRN PRN Reason: Insomnia Metoprolol Succinate (Metoprolol Succinate Er 50 Mg Tab.Er.24h) 50 mg PO DAILY [facility]; Protocol Last Admin: 06/27/22 09:25 Dose: Not Given Documented By: SALBADOR Non-Admin Reason: Decreased Blood Pressure Nicotine Polacrilex (Nicotine Polacrilex 2 Mg Gum) 2 mg BUCCAL Q2H PRN PRN Reason: Nicotine Cravings Last Admin: 06/27/22 06:34 Dose: 2 mg Documented By: PAPI Pharmacy Consult (Consult Rx Vancomycin Dosing) 1 each MISCELLANE DAILY PRN PRN Reason: Consult order Senna (Sennosides 8.6 Mg Tablet) 17.2 mg PO BEDTIME PRN PRN Reason: Constipation Sodium Chloride (0.9 % Sodium Chloride Flush 3 Ml Syringe) 3 ml IVFLUSH QSHIFT [facility] Last Admin: 06/27/22 09:14 Dose: 3 ml Documented By: SALBADOR Warfarin Sodium (Warfarin Sodium 10 Mg Tablet) 10 mg PO DAILY@1800 [facility] Last Admin: 06/26/22 16:39 Dose: 10 mg Documented By: MALIAORRSoco Labs 06/27/22 05:59 06/27/22 05:59 Labs: Laboratory Results - last 24 hr 06/27/22 06/27/22 06/27/22 05:59 05:59 05:59 MCV 88.1 MCH 29.2 MCHC 33.2 RDW 13.4 Plt Count 185 MPV 12.7 H Absolute Nucleated RBC 0.000 Nucleated RBC % (auto) 0.0 PT 14.9 H INR 1.3 H Estim Creat Clear Calc 147.6 Estimated GFR > 60 Microbiology Microbiology Results: Microbiology 06/24/22 18:42 Blood Culture - Preliminary Blood - Venous 06/24/22 18:42 Blood Culture - Preliminary Blood - Venous No growth after 48 hours. Procedures Date of Service Date of Service: 06/27/22 Progress Note: A&P Assessment and plan (1) Cellulitis: Status: Acute Plan See HPI Time Spent With Patient Time: Total time managing care of this patient today _20___ minutes. Quality Stroke Does the patient have a stroke diagnosis?: No VTE Prior VTE?: No VTE Risk Level:: Medical - moderate - high VTE Device Contraindication: Treatment Not Indicated VTE Drug Contraindication: N/A - Med Ordered
--- NOTE | 2022-06-27 12:19 | PM.DS ---
DS: Providers Provider Date of Service: 06/27/22 Date of admission: 06/25/22 02:46 Date of discharge: 06/27/22 Primary care physician: César Osman MD Consults: 06/24/22 23:49 Consult to Care Team Routine Comment: Reason for consultation: vague si, depression 06/25/22 02:46 Consult to General Surgery [place] [facility] [place] [facility] Reason for consultation: CT neck with air; ?nec fasc in differential; but has IV line placed by ER. Consult to Infectious Diseases [place]ine [place]ing [place] [facility] [place] [place] Reason for consultation: Fever unclear source 06/26/22 09:53 Consult to General Surgery Routine Consulting Provider: Chad Miller Reason for consultation: left foot cellulitis r/o necr fascitis Has provider been notified: No DS: Diagnosis Discharge Diagnosis (1) Cellulitis: Status: Acute DS: Summary Hospital Course Hospital Course: 41M with remote hx IVDA Hx Endocarditis s/p Mechanical valve replacement? in 2013 on Coumadin (Goal INR 2.5-3.5), Polysubstance abuse; HTN, Anxiety, Depression, Bipolar; Tobacco dependence p/w Drug overdose, Fall and unresponsive.Pt reports that he has not used IV drugs since 2012. He is latetly snorting drugs. Today he snorted crack and heroin; siubesequently overdosed and fell of stairs; pt was aprneic and unresponsive; EMS was called by bystanders; EMS team; did CPR, BAgged and gave 8mg narcane; later pt became alert and was brought ot ER. Found to have 20,000 WBC and cellulitis of left lower extremity. Exam suspicious for fluid collection however ultrasound failed to demonstrate same. He was admitted on vancomycin and Zosyn; white count improved and pain is resolving. Seen in consultation by General surgery . . . No indication for intervention. Today, he states he has multiple responsibilities to attend to and is wishing to be discharged. White count is normalized and blood cultures are negative times 48 hours; medically acceptable for discharge home on a course of oral Augmentin and doxycycline. He is encouraged to be compliant with the Coumadin secondary to his mechanical heart valve Time Spent with Patient Time attestation: Total time managing care of this patient today ____ minutes. Discharge coordination time: Greater than 30 minutes Quality: Safe Use of Opioids Does Pt have an Active Cancer Diagnosis on the Problem List?: No Quality: Stroke Does the patient have a stroke diagnosis?: No Physical Exam Vital Signs: Vital Signs: Last Vital Signs Temp 97.9 F 06/27/22 11:12 Pulse 57 06/27/22 11:12 Resp 18 06/27/22 11:12 BP 155/81 H 06/27/22 11:12 Pulse Ox 100 06/27/22 11:12 O2 Del Method 06/27/22 11:12 BMI result Body Mass Index 29.0 Const: Other: Awake alert oriented x3 no acute distress Resp: Other: Clear to auscultation bilaterally no rales rhonchi wheezes Cardio: Other: No S4; positive S1-S2; no S3 murmurs rubs or gallops Extrem: Other: Erythema left lower extremity improved DS: Data Data Completed and Pending Labs on day of discharge: Laboratory Results - last 24 hr 06/27/22 06/27/22 06/27/22 05:59 05:59 05:59 WBC 7.8 RBC 4.72 Hgb 13.8 L Hct 41.6 L MCV 88.1 MCH 29.2 MCHC 33.2 RDW 13.4 Plt Count 185 MPV 12.7 H Absolute Nucleated RBC 0.000 Nucleated RBC % (auto) 0.0 PT 14.9 H INR 1.3 H Creatinine 0.75 Estim Creat Clear Calc 147.6 Estimated GFR > 60 Preliminary micro results at discharge 06/24/22 18:42 Blood Culture - Preliminary Blood - Venous 06/24/22 18:42 Blood Culture - Preliminary Blood - Venous No growth after 48 hours. Discharge Plan Discharge Anticipated Discharge Date/Time: 06/27/22 12:10 Patient Disposition: Home, Self-Care Discharge Diagnosis: cellulitis left leg Referrals: César Fraser MD [Primary Care Provider] - 1 Week Discharge Medications: New doxycycline hyclate 100 mg tablet 100 mg PO BID Qty: 20 0RF amoxicillin-pot clavulanate 875-125 mg tablet 1 tab PO BID Qty: 20 0RF oxycodone 10 mg tablet 10 mg PO Q6H PRN (Reason: pain) Qty: 10 0RF Rx Instructions: Partial Fill upon patient request. Continued warfarin 10 mg tablet 1 tab PO DAILY trazodone 150 mg tablet 1 tab PO BEDTIME benztropine 1 mg tablet 1 tab PO BEDTIME aripiprazole 20 mg tablet 1 tab PO DAILY dextroamphetamine-amphetamine 20 mg tablet 1 tab PO BID metoprolol succinate 50 mg tablet extended release 24 hr 50 mg PO DAILY aripiprazole 5 mg tablet 5 mg PO DAILY Discharge Orders: Discharge Order (Routine); Ordered 06/27/22 Ordered By: Timoteo Franks Diet: Advance to usual diet Activity on Discharge: As tolerated Stand Alone Forms: Patient Portal Discharge page Care Plan Goals: Complete course of Augmentin and doxycycline both twice daily for 10 days Health Concerns: Complete avoidance of drugs and alcohol Plan of Treatment: Follow-up with PCP in 2 weeks Assessment: See discharge summary
--- NOTE | 2022-06-27 12:19 | MHC.CM.PN ---
DP: PT HAS BEEN MEDICALLY CLEARED FOR DC HOME, NO SERVICES. RN AWARE. BUS PASS PROVIDED PER PT REQUEST.
== END 2022-06-27 14:15 | disposition home or self-care (01) | DRG 917 ==
LOC: HO.ED 06-25 02:46 → HO.EDOVER 06-25 02:56 → HO.IMC 06-25 04:53
PROVIDERS: Hospitalist; Admitting Provider Hospitalist; Emergency Provider Emergency Medicine; PCP Internal Medicine; Visit Provider Hospitalist
DX: T40.5X1A Poisoning by cocaine, accidental (unintentional), initial encounter (principal); A41.9 Sepsis, unspecified organism; L03.116 Cellulitis of left lower limb; F17.210 Nicotine dependence, cigarettes, uncomplicated; Z71.6 Tobacco abuse counseling; I10 Essential (primary) hypertension; F31.9 Bipolar disorder, unspecified; F41.9 Anxiety disorder, unspecified; R79.1 Abnormal coagulation profile; F19.10 Other psychoactive substance abuse, uncomplicated; Z20.822 Contact with and (suspected) exposure to COVID-19; Z95.2 Presence of prosthetic heart valve; Z88.2 Allergy status to sulfonamides; Z88.5 Allergy status to narcotic agent; Z79.01 Long term (current) use of anticoagulants; Z79.899 Other long term (current) drug therapy
CPT/HCPCS: 36415; 70450; 70491; 71260; 72125; 73562; 74177; 76882; 80048; 80053; 80076; 80202; 80307; 81003; 82077; 82565; 83605; 83735; 84484; 85025; 85027; 85610; 85730; 87040; 87635; 93005; 99285; J1170; J1650; J2543; J3370; J3371; Q9967

== ENCOUNTER 2022-08-26 20:02 | Emergency (ER) | payer OTHER, SELFPAY ==
[2022-08-26 20:21] VITALS: BP 140/91; PULSE 114; RESP 20; O2SAT 98; BMI 26.9
--- NOTE | 2022-08-26 20:38 | MHC.EDTECH ---
pt can not sit sill for blood draw. patient vomiting and it is unsafe to attempt labs at the moment. will try again later. road crossing guard notified
--- NOTE | 2022-08-26 20:42 | ED.OVERDOSE ---
HPI - Overdose General Chief Complaint: Overdose Stated Complaint: OD Time Seen by Provider: 08/26/22 20:40 Source: patient Mode of arrival: ambulatory Limitations: no limitations History of Present Illness HPI Narrative: Patient history of substance abuse been sober for few months use cocaine likely mixed with fentanyl earlier was unresponsive 8 mg of Narcan given the field with good effect was combative initially now is more cooperative saturating 98% on room air no trauma no head injury Related Data Home Medications Medication Instructions Recorded Confirmed aripiprazole 5 mg tablet 5 mg PO DAILY 04/28/21 06/25/22 dextroamphetamine-amphetamine 20 1 tab PO BID 04/28/21 06/25/22 mg tablet metoprolol succinate 50 mg 50 mg PO DAILY 04/28/21 06/25/22 tablet,extended release 24 hr aripiprazole 20 mg tablet 1 tab PO DAILY 06/25/22 06/25/22 benztropine 1 mg tablet 1 tab PO BEDTIME 06/25/22 06/25/22 trazodone 150 mg tablet 1 tab PO BEDTIME 06/25/22 06/25/22 warfarin 10 mg tablet 1 tab PO DAILY 06/25/22 06/25/22 Previous Rx's Medication Instructions Recorded amoxicillin 875 mg-potassium 1 tab PO BID #20 tabs 06/27/22 clavulanate 125 mg tablet doxycycline hyclate 100 mg tablet 100 mg PO BID #20 tabs 06/27/22 oxycodone 10 mg tablet 10 mg PO Q6H PRN pain #10 tabs 06/27/22 Allergies Allergy/AdvReac Type Severity Reaction Status Date / Time morphine [MORPHINE] Allergy Unknown ITCHY Verified 04/28/21 14:08 shellfish derived Allergy Unknown SHORTNESS Verified 04/28/21 14:08 [SHELLFISH DERIVED] OF BREATH Sulfa (Sulfonamide Allergy Unknown UNK Verified 04/28/21 14:08 Antibiotics) [SULFA (SULFONAMIDE ANTIBIOTICS)] Review of Systems Review of Systems: Yes all other systems are reviewed and are negative PMFSH Past Medical History Medical History Anticoagulated on Coumadin Substance abuse Surgical History Heart valve replaced Social History Social History Household Members: Family Housing: Apartment Do you presently have visiting nurse or other home services: No Patient Tobacco Use Status: Current everyday Tobacco user Tobacco use type: Cigarette Substance Use Type: Crack/Cocaine and Opiates Advance Directives: No Advance Directives Information Provided: No service: No Current occupational status: unemployed Physical Exam Vital Signs: Vital Signs: Last Vital Signs Pulse 114 H 08/26/22 20:21 Resp 20 08/26/22 20:21 BP 140/91 H 08/26/22 20:21 Pulse Ox 98 08/26/22 20:21 O2 Del Method Nasal Cannula, Am bu-Bag 08/26/22 20:21 BMI result Body Mass Index 26.9 Appearance: Alert. Oriented X3. No acute distress. Anxious Eyes: PERRLA, No Nystagmus ENT: Pharynx normal. Oral Mucosa moist Neck: Normal inspection. Neck supple. CVS: Normal heart rate and rhythm. Pulses normal. Respiratory: No respiratory distress. Equal air entry bilateral, no wheezing/rales/rhonchi Abdomen: Soft and nontender. Bowel sounds are present, no mass palpable, no CVA tenderness Skin: Skin warm and dry. Normal skin color. Normal skin turgor. Extremities: No lower extremity edema. No calf tenderness Neuro: Oriented X 3. No motor deficit. No sensory deficit.No cerebellar signs , cranial nerves II-XII intact Medical Decision Making Lab Data Labs: Lab Results 08/26/22 08/26/22 Range/Units 21:17 21:17 Urine Color Yellow Urine Appearance Clear Urine pH 7.0 (5.0-9.0) Ur Specific [place] 1.015 (1.005-1.025) Urine Protein Trace (Neg-Trace) mg/dL Urine Glucose (UA) Negative (Negative) mg/dL Urine Ketones 80 (Negative) mg/dL Urine Blood Negative (Negative) Urine Nitrite Negative (Negative) Ur Leukocyte Esterase Negative (Negative) Urine Opiates Screen POSITIVE H (Not Detect) Urine Fentanyl Screen POSITIVE H (Not Detect) Ur Barbiturates Screen Not Detected (Not Detect) Ur Phencyclidine Scrn Not Detected (Not Detect) Ur Amphetamines Screen Not Detected (Not Detect) U Benzodiazepines Scrn Not Detected (Not Detect) Urine Cocaine Screen POSITIVE H (Not Detect) U Marijuana (THC) Screen Not Detected (Not Detect) Discharge Plan Discharge Clinical Impression: Drug overdose Patient Disposition: Home, Self-Care Instructions: Opioid Use Disorder (ED) Additional Instructions: Stop using drugs Follow-up with detox Prescriptions: No Action warfarin 10 mg tablet 1 tab PO DAILY trazodone 150 mg tablet 1 tab PO BEDTIME benztropine 1 mg tablet 1 tab PO BEDTIME aripiprazole 20 mg tablet 1 tab PO DAILY doxycycline hyclate 100 mg tablet 100 mg PO BID Qty: 20 0RF amoxicillin-pot clavulanate 875-125 mg tablet 1 tab PO BID Qty: 20 0RF oxycodone 10 mg tablet 10 mg PO Q6H PRN (Reason: pain) Qty: 10 0RF Rx Instructions: Partial Fill upon patient request. dextroamphetamine-amphetamine 20 mg tablet 1 tab PO BID metoprolol succinate 50 mg tablet extended release 24 hr 50 mg PO DAILY aripiprazole 5 mg tablet 5 mg PO DAILY
[2022-08-26 21:23] LABS: Appearance Urine Clear; Color Urine Yellow; Glucose Urine UA Negative (Negative); Leukocyte Esterase Urine Negative (Negative); Nitrite Urine Negative (Negative); Specific Gravity - Urine 1.015 (1.005-1.025); Urine Blood Negative (Negative); Urine Ketones 80 mg/dL (Negative); Urine Protein Trace mg/dL (Neg-Trace)
[2022-08-26 21:32] LABS: Amphetamine Screen Urine Not Detected (Not Detect); Barbiturates, Urine Not Detected (Not Detect); Benzodiazepines Screen Urine Not Detected (Not Detect); Cannabinoid Screen Urine Not Detected (Not Detect); Cocaine Screen Urine POSITIVE (Not Detect); Fentanyl, urine POSITIVE (Not Detect); Opiate Screen Urine POSITIVE (Not Detect); Phencyclidine Screen Urine Not Detected (Not Detect)
--- NOTE | 2022-08-26 21:45 | PC.NURSE ---
patient ambulating around room, using urinal at bedside with no issues
--- NOTE | 2022-08-27 09:29 | ECG_ITS ---
Test Reason : OD Blood Pressure : / mmHG Vent. Rate : 111 BPM Atrial Rate : 111 BPM P-R Int : 172 ms QRS Dur : 080 ms QT Int : 334 ms P-R-T Axes : 064 061 039 degrees QTc Int : 454 ms Sinus tachycardia Left atrial enlargement Borderline ECG When compared with ECG of 25-JUN-2022 04:14, Nonspecific T wave abnormality, improved in Inferior leads T wave inversion less evident in Anterolateral leads Referred By: Joseluis Salazar Electronically Signed By:LALO GARCIA
== END 2022-08-26 22:04 | disposition home or self-care (01) ==
PROVIDERS: Emergency Provider Internal Medicine; PCP Internal Medicine
DX: T40.5X1A Poisoning by cocaine, accidental (unintentional), initial encounter (principal); T40.1X1A Poisoning by heroin, accidental (unintentional), initial encounter; R00.0 Tachycardia, unspecified; Y92.9 Unspecified place or not applicable; F17.210 Nicotine dependence, cigarettes, uncomplicated; Z71.6 Tobacco abuse counseling; Z79.899 Other long term (current) drug therapy
CPT/HCPCS: 80307; 81003; 93005; 99284